=== PATIENT | female | born 1950 | race Caucasian/White ===

== ENCOUNTER 2019-03-29 07:37 | Day surgery (SDC) | payer BC, MEDICARE ==
[~2019-03-29 07:37] MED LIST: Lactated Ringers 1,000 ML IV SCH; Lidocaine 1%/Sod Bicarbonate in NS 8.4% 1 ML Syringe IDERM PRN; Sodium Chloride 0.9% 10 ML Syringe FLUSH PRN
[2019-03-29] MEDS ORDERED: Propofol 200 MG/20 ML SDV ONE ×2 (08:05→08:38)
--- NOTE | 2019-03-29 08:30 | PCM.PREANE ---
Preanesthetic Assessment - Anesthesia/Transfusion/Family Hx Anesthesia History: Prior Anesthesia Without Reaction Family History of Anesthesia Reaction: No Transfusion History: No Prior Transfusion(s) Intubation History: Unknown - Review of Systems General: No Symptoms Pulmonary: No Symptoms Cardiovascular: No Symptoms Gastrointestinal: No Symptoms Neurological: No Symptoms - Physical Assessment NPO Status Date: 03/28/19 NPO Status Time: 11:55 O2 Sat by Pulse Oximetry: 91 Respiratory Rate: 16 Vital Signs: Last Vital Signs Temp 36.2 C 03/29/19 07:45 Pulse 67 03/29/19 07:45 Resp 16 03/29/19 07:45 BP 123/68 03/29/19 07:45 Pulse Ox 91 L 03/29/19 07:45 Height: 1.65 m Weight: 83.461 kg ASA Class: 3 Mental Status: Alert & Oriented x3 Dentition: Reports: Normal Dentition ROM/Head Extension: Full Lungs: Normal Respiratory Effort, Rales Cardiovascular: Regular Rate, Regular Rhythm - Allergies Allergies/Adverse Reactions: Allergies Allergy/AdvReac Type Severity Reaction Status Date / Time No Known Allergies Allergy Verified 03/28/19 12:31 - Blood Blood Available: No Product(s) Available: None - Anesthesia Plan Pre-Op Medication Ordered: Beta Marta Beta Marta: Metoprolol - Acknowledgements Anesthesia Type Planned: MAC Pt an Appropriate Candidate for the Planned Anesthesia: Yes Alternatives and Risks of Anesthesia Discussed w Pt/Guardian: Yes Pt/Guardian Understands and Agrees with Anesthesia Plan: Yes PreAnesthesia Questionnaire HEENT History: Reports: Allergic Rhinitis, Hard of Hearing, Impaired Vision, Otitis Media, Sinusitis, Other (See Below) Other HEENT History: hearing loss, bacterial conjunctivitis, cerumen impaction Cardiovascular History: Reports: High Cholesterol, Hypertension Respiratory History: Reports: Bronchitis, Recurrent, Sleep Apnea, Other (See Below) Other Respiratory History: reactive airway disease Gastrointestinal History: Reports: Colon Polyp, Diverticulosis, GERD, Irritable Bowel Syndrome Genitourinary History: Reports: Chronic Renal Insuffiency INSIDE POLISHER History: Reports: None Musculoskeletal History: Reports: RA, Other (See Below) Other Musculoskeletal History: left foot pain, back pain, rib fracture, osteoporosis, restless leg syndrome, right hip pain Neurological History: Reports: Migraines, Vertigo Psychiatric History: Reports: Anxiety, Depression Endocrine/Metabolic History: Reports: None Hematologic History: Reports: Other (See Below) Other Hematologic History: hypercalcemia Immunologic History: Reports: None Oncologic (Cancer) History: Reports: None Dermatologic History: Reports: Other (See Below) Other Dermatologic History: actinic keratosis, skin lesion - Infectious Disease History Infectious Disease History: Reports: Influenza - Past Surgical History Head Surgeries/Procedures: Reports: None Cardiovascular Surgical History: Reports: None Respiratory Surgical History: Reports: None GI Surgical History: Reports: Appendectomy, Colonoscopy, Other (See Below) Other GI Surgeries/Procedures: ileostomy, laparoscopic partial colectomy Female Surgical History: Reports: Hysterectomy, Other (See Below) Other Female Surgeries/Procedures: rectovaginal fistula repair Endocrine Surgical History: Reports: None Neurological Surgical History: Reports: None Musculoskeletal Surgical History: Reports: Knee Replacement, Other (See Below) Other Musculoskeletal Surgeries/Procedures:: acl repair, bilateral bunionectomy , bilateral knee replacements, right shoulder surgery Oncologic Surgical History: Reports: None - SUBSTANCE USE Smoking Status *Q: Former Smoker Recreational Drug Use History: No - HOME MEDS Home Medications: Home Meds Albuterol Sulfate [Proair Respiclick] 1 - 2 puff INH Q4H PRN 10/30/16 [History] Aspirin 325 mg PO DAILY 10/30/16 [History] Denosumab [Prolia] 60 mg PO Q180D 10/30/16 [History] Felodipine [Felodipine ER] 5 mg PO ACBREAKFAST 10/30/16 [History] Metoprolol Tartrate 25 mg PO BID 10/30/16 [History] Naratriptan HCl 2.5 mg PO ASDIRECTED PRN 10/30/16 [History] Rosuvastatin [Crestor] 20 mg PO DAILY 10/30/16 [History] Sertraline HCl 150 mg PO BEDTIME 10/30/16 [History] Tofacitinib Citrate [Xeljanz] 5 mg PO BID 10/30/16 [History] Celecoxib 100 mg PO DAILY 03/28/19 [History] Diclofenac Sodium [Voltaren 1% Gel] 1 dose TOP BID PRN 03/28/19 [History] Famotidine [Pepcid AC] 10 mg PO DAILY 03/28/19 [History] Folic Acid 1 mg PO DAILY 03/28/19 [History] Gabapentin [Neurontin] 300 mg PO QAM 03/28/19 [History] Gabapentin [Neurontin] 600 mg PO QPM 03/28/19 [History] Pramipexole Di-HCl [Pramipexole Dihydrochloride] 0.125 mg PO BEDTIME 03/28/19 [ History] oxyCODONE HCl [Oxycontin] 15 mg PO BID 03/28/19 [History] oxyCODONE HCl/Acetaminophen [Oxycodone-Acetaminophen 5-325] 1 - 2 tab PO Q6H PRN 03/28/19 [History] predniSONE [Prednisone] 3 mg PO BID 03/28/19 [History] - CURRENT (IN HOUSE) MEDS Current Meds: Current Medications Lactated Ringer's (Ringers, Lactated) 1,000 mls @ 125 mls/hr IV ASDIRECTED BASIL Stop: 03/29/19 23:00 Last Admin: 03/29/19 08:00 Dose: 125 mls/hr Lidocaine/Sodium Bicarbonate (Buffered Lidocaine 1% In Ns 8.4%) 0.25 ml IDERM ONETIME PRN PRN Reason: Prior to IV Start Stop: 03/29/19 18:00 Sodium Chloride (Saline Flush) 10 ml FLUSH ASDIRECTED PRN PRN Reason: Keep Vein Open Stop: 03/29/19 18:00 Discontinued Medications Propofol (Diprivan 20 Ml) Confirm Administered Dose 200 mg .ROUTE .STK-MED ONE Stop: 03/29/19 08:06
--- NOTE | 2019-03-29 08:56 | PCM.POSTAN ---
POST ANESTHESIA ASSESSMENT - MENTAL STATUS Mental Status: Alert - RESPIRATORY Respiratory Status: Respiratory Rate WNL, Airway Patent - CARDIOVASCULAR CV Status: Pulse Rate WNL, Blood Pressure Stable - GASTROINTESTINAL GI Status: No Symptoms - POST OP HYDRATION Hydration Status: Adequate & Stable
--- NOTE | 2019-03-29 08:56 | PCM48HPAN ---
Post Anesthesia Note - EVALUATION WITHIN 48HRS OF ANESTHETIC Vital Signs in Normal Range: Yes Patient Participated in Evaluation: Yes Respiratory Function Stable: Yes Airway Patent: Yes Cardiovascular Function Stable: Yes Hydration Status Stable: Yes Pain Control Satisfactory: Yes Nausea and Vomiting Control Satisfactory: Yes Mental Status Recovered: Yes Resp Rate: 16
[2019-03-29 09:41] VITALS: BP 95/66
--- NOTE | 2019-03-29 14:31 | OR ---
DATE OF OPERATION: 03/29/2019 SURGEON: Brad Beaver MD PREOPERATIVE DIAGNOSIS: 1. Strong family history of colonic malignancy. 2. Diverticulosis. POSTOPERATIVE DIAGNOSIS: 1. Strong family history of colonic malignancy. 2. Diverticulosis. OPERATION PERFORMED: Screening colonoscopy. FINDINGS: She has a short segment of remaining sigmoid diverticulosis identified in anastomosis between the sigmoid colon and the rectum with evidence of previous resection. She had no polyps. She had an excellent bowel prep. PATHOLOGY: None. DISPOSITION: Stable at the end of the procedure. ANESTHESIA: Monitored anesthesia care. INDICATION: The patient is a 68-year-old female, 6 years out from her last colonoscopy. She has a strong family history of colon cancer. She has a history of colon resection for perforated diverticulitis, which resulted in an anastomotic leak and redo. The patient was offered a screening colonoscopy per the standard of care. She was fully informed of the major risks, benefits, and alternatives. The risks include, but are not limited to, perforation of the colon, bleeding, the risks of anesthesia, and the possibility of further surgery. She gave informed consent. DESCRIPTION OF PROCEDURE: The patient was brought to the gastro suite and placed in the left lateral decubitus position. She was given monitored anesthesia. Digital rectal exam was performed. This was unremarkable. I introduced the colonoscope with copious lubrication into the rectum. I advanced the scope keeping the lumen in view at all times with gentle forward pressure. I identified the cecum photographically. I slowly investigated the mucosa of the colon from the cecum back to the anus in an exam lasting 7 minutes. A thorough careful examination of the entirety of the mucosa demonstrated no polyps. She has a short segment of diverticulosis, but beyond this, her exam was unremarkable. At the end of the procedure, the scope was withdrawn. She had no complications and tolerated the procedure well with no blood loss. PLAN: She will need another followup exam in 5 years. ESTIMATED BLOOD LOSS: MMODAL /[id number]
== END 2019-03-29 09:30 | disposition home or self-care (01) ==
LOC: JD.SDS 07:37
PROVIDERS: ATTEND Surgery
DX: Z12.11 Encounter for screening for malignant neoplasm of colon (principal); K57.30 Diverticulosis of large intestine without perforation or abscess without bleeding; K21.9 Gastro-esophageal reflux disease without esophagitis; I12.9 Hypertensive chronic kidney disease with stage 1 through stage 4 chronic kidney disease, or unspecified chronic kidney disease; N18.9 Chronic kidney disease, unspecified; E78.00 Pure hypercholesterolemia, unspecified; F41.9 Anxiety disorder, unspecified; F32.9 Major depressive disorder, single episode, unspecified; G47.33 Obstructive sleep apnea (adult) (pediatric); G43.909 Migraine, unspecified, not intractable, without status migrainosus; M19.90 Unspecified osteoarthritis, unspecified site; Z90.49 Acquired absence of other specified parts of digestive tract; Z86.010 Personal history of colon polyps; Z87.19 Personal history of other diseases of the digestive system; Z87.891 Personal history of nicotine dependence; Z80.0 Family history of malignant neoplasm of digestive organs; Z79.82 Long term (current) use of aspirin; Z79.1 Long term (current) use of non-steroidal anti-inflammatories (NSAID); Z79.52 Long term (current) use of systemic steroids; Z79.899 Other long term (current) drug therapy
CPT/HCPCS: 00812; J2704; J7120

== ENCOUNTER 2021-12-06 09:28 | Inpatient (IN) | payer BC, MEDICARE ==
[2021-12-06] MEDS ORDERED: Sodium Chloride 0.9% 10 ML Syringe FLUSH PRN (09:39)
[2021-12-06] MEDS ORDERED: methylPREDNISolone Sodium Succinate 125 MG/2 ML SDV IVPUSH ONE (10:01)
[2021-12-06 11:06] LABS: CORONAVIRUS COVID-19 NAA POSITIVE (NEGATIVE)
[2021-12-06] MEDS ORDERED: Lactated Ringers 500 ML IV ONE (17:56)
[2021-12-06] MEDS ORDERED: Acetaminophen 325 MG Tab PO PRN (20:51)
[2021-12-06] MEDS ORDERED: Mirtazapine 30 MG Tab PO ONE (21:15)
[2021-12-06] MEDS: Sertraline 50 MG Tab PO SCH (22:00)
[2021-12-06] MEDS: cefTRIAXone 2 GM in Sodium Chloride 0.9% 100 ML IV SCH (22:11)
[2021-12-06] MEDS: Azithromycin 500 MG in Sodium Chloride 0.9% 250 ML IV SCH (22:55)
[2021-12-07] MEDS ORDERED: Enoxaparin 60 MG/0.6 ML Syringe SUBCUT ONE (08:00)
[2021-12-07] MEDS ORDERED: Enoxaparin 100 MG/1 ML Syringe SUBCUT SCH (08:00)
[2021-12-07] MEDS: Aspirin 325 MG Tab.EC PO SCH (08:34)
[2021-12-07] MEDS: Famotidine 10 MG Tab PO SCH (08:34)
[2021-12-07] MEDS: Metoprolol Tartrate 50 MG Tab PO SCH ×2 (08:35→21:38)
[2021-12-07] MEDS: Calcium Carbonate/Vitamin D3 600 MG-200 Units Tab PO SCH (08:35)
[2021-12-07] MEDS: Rosuvastatin 10 MG Tab PO SCH (08:35)
[2021-12-07] MEDS: Dexamethasone 4 MG Tab PO SCH (08:35)
[2021-12-07] MEDS: Allopurinol 100 MG Tab PO SCH (08:35)
[2021-12-07] MEDS ORDERED: Enoxaparin 60 MG/0.6 ML Syringe SUBCUT SCH ×2 (09:15→21:00)
[2021-12-07] MEDS ORDERED: Enoxaparin 30 MG/0.3 ML Syringe SUBCUT ONE (18:00)
[2021-12-07] MEDS: Sertraline 50 MG Tab PO SCH (21:40)
[2021-12-07] MEDS: Mirtazapine 30 MG Tab PO SCH (21:40)
[2021-12-07] MEDS: cefTRIAXone 2 GM in Sodium Chloride 0.9% 100 ML IV SCH (21:45)
[2021-12-07] MEDS: Azithromycin 500 MG in Sodium Chloride 0.9% 250 ML IV SCH (22:01)
[2021-12-08] MEDS: Famotidine 10 MG Tab PO SCH (08:24)
[2021-12-08] MEDS: Dexamethasone 4 MG Tab PO SCH (08:25)
[2021-12-08] MEDS: Allopurinol 100 MG Tab PO SCH (08:25)
[2021-12-08] MEDS: Aspirin 325 MG Tab.EC PO SCH (08:25)
[2021-12-08] MEDS: Rosuvastatin 10 MG Tab PO SCH (08:25)
[2021-12-08] MEDS: Calcium Carbonate/Vitamin D3 600 MG-200 Units Tab PO SCH (08:25)
[2021-12-08] MEDS: Metoprolol Tartrate 50 MG Tab PO SCH (08:26)
[2021-12-08] MEDS: Enoxaparin 100 MG/1 ML Syringe SUBCUT SCH (08:26)
[2021-12-08] MEDS: Famotidine 20 MG Tab PO SCH ×2 (08:31→08:47)
[2021-12-08] MEDS: Metoprolol Tartrate 25 MG Tab PO SCH ×3 (08:31→21:17)
[2021-12-08] MEDS ORDERED: Furosemide 40 MG/4 ML VIAL IVPUSH ONE (09:20)
[2021-12-08] MEDS: Clopidogrel 75 MG Tab PO SCH (15:52)
[2021-12-08] MEDS: Mirtazapine 30 MG Tab PO SCH (21:19)
[2021-12-08] MEDS: Sertraline 50 MG Tab PO SCH (21:19)
[2021-12-08] MEDS: Azithromycin 500 MG in Sodium Chloride 0.9% 250 ML IV SCH (21:24)
[2021-12-09] MEDS: Clopidogrel 75 MG Tab PO SCH (08:37)
[2021-12-09] MEDS: Metoprolol Tartrate 25 MG Tab PO SCH (08:37)
[2021-12-09] MEDS: Calcium Carbonate/Vitamin D3 600 MG-200 Units Tab PO SCH (08:38)
[2021-12-09] MEDS: Allopurinol 100 MG Tab PO SCH (08:38)
[2021-12-09] MEDS: Aspirin 325 MG Tab.EC PO SCH (08:40)
[2021-12-09] MEDS: Rosuvastatin 10 MG Tab PO SCH (08:40)
[2021-12-09] MEDS: Famotidine 20 MG Tab PO SCH (08:40)
[2021-12-09] MEDS: Dexamethasone 4 MG Tab PO SCH (08:42)
[2021-12-09] MEDS: Enoxaparin 100 MG/1 ML Syringe SUBCUT SCH (08:42)
[2021-12-09 13:09] VITALS: BP 105/91; PULSE 68
== END 2021-12-09 14:02 | disposition home or self-care (01) | DRG 137 ==
LOC: JD.ED 09:28 → JD.ICU 14:53 → JD.MS 12-09 09:28
PROVIDERS: ADMIT Pediatrics; ATTEND Pediatrics
PROC: 8E0ZXY6 Isolation (ICD-10-PCS; principal; 2021-12-06)
PROC: 3E0333Z Introduction of Anti-inflammatory into Peripheral Vein, Percutaneous Approach (ICD-10-PCS; 2021-12-06)
DX: U07.1 COVID-19 (principal); J12.82 Pneumonia due to coronavirus disease 2019; D84.9 Immunodeficiency, unspecified; M06.9 Rheumatoid arthritis, unspecified; I21.A1 Myocardial infarction type 2; I50.32 Chronic diastolic (congestive) heart failure; H91.93 Unspecified hearing loss, bilateral; E78.5 Hyperlipidemia, unspecified; G47.33 Obstructive sleep apnea (adult) (pediatric); K21.9 Gastro-esophageal reflux disease without esophagitis; I13.0 Hypertensive heart and chronic kidney disease with heart failure and stage 1 through stage 4 chronic kidney disease, or unspecified chronic kidney disease; N18.9 Chronic kidney disease, unspecified; E66.9 Obesity, unspecified; Z96.653 Presence of artificial knee joint, bilateral; F32.A Depression, unspecified; F41.9 Anxiety disorder, unspecified; Z87.81 Personal history of (healed) traumatic fracture; Z68.30 Body mass index [BMI] 30.0-30.9, adult; Z90.49 Acquired absence of other specified parts of digestive tract; Z93.2 Ileostomy status; Z90.710 Acquired absence of both cervix and uterus; Z79.82 Long term (current) use of aspirin; Z79.899 Other long term (current) drug therapy
CPT/HCPCS: 0241U; 36415; 36600; 70450; 70450-26; 71045; 71045-26; 80048; 80053; 80076; 81001; 82728; 82803; 82947; 83605; 83615; 83880; 84484; 85025; 85379; 85652; 86140; 87040; 93005; 93010; 93306; 94660; 94667; 94668; 94761; 96374; 97161-GP; 99285; 99285-25; A9270-GY; J0456; J0696; J1650; J1940; J2930; J7050; J7120; J8540

== ENCOUNTER 2022-10-12 17:41 | Inpatient (IN) | payer BC, MEDICARE ==
[2022-10-12] MEDS ORDERED: Ondansetron 4 MG in Sodium Chloride 0.9% 50 ML IV ONE (18:35)
[2022-10-12 19:03] LABS: ESTIMATED GFR 26 mL/min (>60)
[2022-10-12 19:39] LABS: CORONAVIRUS COVID-19 NAA NEGATIVE (NEGATIVE)
[2022-10-12] MEDS ORDERED: Sodium Chloride 0.9% 10 ML Syringe FLUSH ONE (19:50)
[2022-10-12] MEDS ORDERED: Iopamidol 755 Mg/ML 100 ML Bottle IVPUSH ONE (19:50)
[2022-10-12] MEDS ORDERED: Sodium Chloride 0.9% 100 ML IV SCH (20:00)
[2022-10-12] MEDS ORDERED: Sodium Chloride 0.9% 1,000 ML IV SCH ×2 (21:15→22:45)
[2022-10-12] MEDS ORDERED: Acetaminophen/oxyCODONE 325-5 MG Tab PO ONE (21:28)
[2022-10-12] MEDS ORDERED: oxyCODONE ER 10 MG TAB.ER PO STA (21:29)
[2022-10-12] MEDS ORDERED: Piperacillin/Tazobactam 4.5 GM in Sodium Chloride 0.9% 100 ML IV ONE (21:36)
[2022-10-13] MEDS: methylPREDNISolone Sodium Succinate 125 MG/2 ML SDV IVPUSH SCH (08:35)
[2022-10-13] MEDS: Albuterol/Ipratropium 3.0-0.5 MG/3 ML Neb Soln NEB SCH ×4 (09:04→21:02)
[2022-10-13] MEDS: Piperacillin/Tazobactam 4.5 GM in Sodium Chloride 0.9% 100 ML IV SCH ×2 (11:40→22:47)
[2022-10-13] MEDS ORDERED: Diclofenac Sodium 1% Gel 100 GM Tube TOP PRN (11:42)
[2022-10-13] MEDS: Gabapentin 300 MG Cap PO SCH (12:41)
[2022-10-13] MEDS ORDERED: Furosemide 20 MG/2 ML VIAL IVPUSH ONE (14:42)
[2022-10-13] MEDS ORDERED: LORazepam 2 MG/ML SDV IVPUSH ONE (18:33)
[2022-10-14] MEDS: Metoprolol Tartrate 25 MG Tab PO SCH ×3 (02:04→21:09)
[2022-10-14] MEDS: Gabapentin 600 MG Tab PO SCH ×2 (02:06→21:15)
[2022-10-14] MEDS: Sertraline 50 MG Tab PO SCH ×2 (02:07→21:16)
[2022-10-14] MEDS: OXYCODONE HCL PO SCH ×3 (02:07→21:24)
[2022-10-14] MEDS: Mirtazapine 30 MG Tab PO SCH (02:07)
[2022-10-14] MEDS: Albuterol/Ipratropium 3.0-0.5 MG/3 ML Neb Soln NEB SCH ×6 (02:33→21:05)
[2022-10-14] MEDS ORDERED: Sodium Chloride 0.9% 1,000 ML IV SCH (06:30)
[2022-10-14] MEDS ORDERED: Famotidine 20 MG Tab PO SCH (09:00)
[2022-10-14] MEDS: Gabapentin 300 MG Cap PO SCH ×2 (09:12→11:11)
[2022-10-14] MEDS: methylPREDNISolone Sodium Succinate 125 MG/2 ML SDV IVPUSH SCH (09:12)
[2022-10-14] MEDS: Famotidine 10 MG Tab PO SCH (09:12)
[2022-10-14] MEDS: Allopurinol 100 MG Tab PO SCH (09:13)
[2022-10-14] MEDS: Heparin Sodium 5,000 Units/ML Vial SUBCUT SCH ×2 (11:11→21:09)
[2022-10-14] MEDS: Piperacillin/Tazobactam 4.5 GM in Sodium Chloride 0.9% 100 ML IV SCH ×2 (11:11→23:58)
[2022-10-14] MEDS: guaiFENesin 600 MG Tab.ER PO SCH ×2 (11:11→21:15)
[2022-10-15] MEDS: Albuterol/Ipratropium 3.0-0.5 MG/3 ML Neb Soln NEB SCH ×6 (02:04→21:37)
[2022-10-15] MEDS: Heparin Sodium 5,000 Units/ML Vial SUBCUT SCH ×3 (04:25→21:48)
[2022-10-15] MEDS: Gabapentin 300 MG Cap PO SCH ×2 (06:21→11:52)
[2022-10-15] MEDS: Allopurinol 100 MG Tab PO SCH (09:08)
[2022-10-15] MEDS: guaiFENesin 600 MG Tab.ER PO SCH ×2 (09:08→21:45)
[2022-10-15] MEDS: Famotidine 10 MG Tab PO SCH (09:08)
[2022-10-15] MEDS: Metoprolol Tartrate 25 MG Tab PO SCH ×2 (09:09→21:45)
[2022-10-15] MEDS: methylPREDNISolone Sodium Succinate 125 MG/2 ML SDV IVPUSH SCH (09:09)
[2022-10-15] MEDS: Piperacillin/Tazobactam 4.5 GM in Sodium Chloride 0.9% 100 ML IV SCH ×2 (11:52→23:41)
[2022-10-15] MEDS ORDERED: Heparin Sodium 5,000 Units/ML Vial ONE (21:38)
[2022-10-15] MEDS: Sertraline 50 MG Tab PO SCH (21:44)
[2022-10-15] MEDS: Gabapentin 600 MG Tab PO SCH (21:44)
[2022-10-16] MEDS: Albuterol/Ipratropium 3.0-0.5 MG/3 ML Neb Soln NEB SCH ×6 (01:34→22:53)
[2022-10-16] MEDS: OXYCODONE HCL PO SCH ×4 (04:33→20:28)
[2022-10-16] MEDS: Heparin Sodium 5,000 Units/ML Vial SUBCUT SCH ×3 (04:34→18:54)
[2022-10-16] MEDS: Gabapentin 300 MG Cap PO SCH ×2 (05:51→11:52)
[2022-10-16] MEDS: guaiFENesin 600 MG Tab.ER PO SCH ×2 (08:57→20:22)
[2022-10-16] MEDS: Allopurinol 100 MG Tab PO SCH (08:58)
[2022-10-16] MEDS: Famotidine 10 MG Tab PO SCH (08:58)
[2022-10-16] MEDS: Metoprolol Tartrate 25 MG Tab PO SCH ×2 (08:58→20:23)
[2022-10-16] MEDS: predniSONE 20 MG Tab PO SCH (08:58)
[2022-10-16] MEDS: Piperacillin/Tazobactam 4.5 GM in Sodium Chloride 0.9% 100 ML IV SCH ×2 (11:51→18:54)
[2022-10-16] MEDS: oxyCODONE 5 MG Tab PO PRN (18:53)
[2022-10-16] MEDS: Gabapentin 600 MG Tab PO SCH (20:21)
[2022-10-16] MEDS: Sertraline 50 MG Tab PO SCH (20:22)
[2022-10-16] MEDS: Mirtazapine 30 MG Tab PO SCH (20:23)
[2022-10-17] MEDS: Albuterol/Ipratropium 3.0-0.5 MG/3 ML Neb Soln NEB SCH ×6 (02:56→22:06)
[2022-10-17] MEDS: Piperacillin/Tazobactam 4.5 GM in Sodium Chloride 0.9% 100 ML IV SCH ×3 (03:29→19:10)
[2022-10-17] MEDS: Heparin Sodium 5,000 Units/ML Vial SUBCUT SCH ×3 (03:30→19:10)
[2022-10-17] MEDS: Gabapentin 300 MG Cap PO SCH ×2 (05:43→11:43)
[2022-10-17] MEDS: predniSONE 20 MG Tab PO SCH (06:00)
[2022-10-17] MEDS: Metoprolol Tartrate 25 MG Tab PO SCH ×2 (08:43→20:03)
[2022-10-17] MEDS: oxyCODONE 5 MG Tab PO PRN ×2 (08:44→19:10)
[2022-10-17] MEDS: Allopurinol 100 MG Tab PO SCH (08:45)
[2022-10-17] MEDS: guaiFENesin 600 MG Tab.ER PO SCH ×2 (08:45→20:02)
[2022-10-17] MEDS: Famotidine 10 MG Tab PO SCH (08:45)
[2022-10-17] MEDS: OXYCODONE HCL PO SCH ×2 (10:08→20:05)
[2022-10-17] MEDS: Gabapentin 600 MG Tab PO SCH (20:00)
[2022-10-17] MEDS: Sertraline 50 MG Tab PO SCH (20:01)
[2022-10-17] MEDS: Mirtazapine 30 MG Tab PO SCH (20:03)
[2022-10-18] MEDS: Heparin Sodium 5,000 Units/ML Vial SUBCUT SCH ×3 (02:29→20:21)
[2022-10-18] MEDS: Piperacillin/Tazobactam 4.5 GM in Sodium Chloride 0.9% 100 ML IV SCH ×3 (02:29→20:21)
[2022-10-18] MEDS: Albuterol/Ipratropium 3.0-0.5 MG/3 ML Neb Soln NEB SCH ×6 (02:31→22:09)
[2022-10-18] MEDS: predniSONE 20 MG Tab PO SCH (06:29)
[2022-10-18] MEDS: Gabapentin 300 MG Cap PO SCH ×2 (06:29→11:38)
[2022-10-18] MEDS: Albuterol 0.083% 2.5 MG/3 ML Neb Soln NEB PRN (07:40)
[2022-10-18] MEDS: Metoprolol Tartrate 25 MG Tab PO SCH ×3 (07:41→20:22)
[2022-10-18] MEDS: Famotidine 10 MG Tab PO SCH ×2 (07:42→08:02)
[2022-10-18] MEDS: guaiFENesin 600 MG Tab.ER PO SCH ×3 (07:42→20:24)
[2022-10-18] MEDS: Allopurinol 100 MG Tab PO SCH ×2 (07:42→08:02)
[2022-10-18] MEDS: OXYCODONE HCL PO SCH ×2 (08:02→20:29)
[2022-10-18] MEDS ORDERED: Levofloxacin/Dextrose 5%-Water 750 MG in Premix Bag 1 BAG IV SCH (11:00)
[2022-10-18 11:43] LABS: CORONAVIRUS COVID-19 NAA NEGATIVE (NEGATIVE)
[2022-10-18] MEDS ORDERED: VANCOmycin 1.25 GM/250 ML 1.25 GM in Premix Bag 1 BAG IV SCH (12:30)
[2022-10-18] MEDS: Sertraline 50 MG Tab PO SCH (20:22)
[2022-10-18] MEDS: Gabapentin 600 MG Tab PO SCH (20:24)
[2022-10-18] MEDS: Mirtazapine 30 MG Tab PO SCH (20:24)
[2022-10-19] MEDS: Albuterol/Ipratropium 3.0-0.5 MG/3 ML Neb Soln NEB SCH ×6 (01:57→21:03)
[2022-10-19] MEDS: Heparin Sodium 5,000 Units/ML Vial SUBCUT SCH ×3 (03:22→20:04)
[2022-10-19] MEDS: Piperacillin/Tazobactam 4.5 GM in Sodium Chloride 0.9% 100 ML IV SCH (03:22)
[2022-10-19] MEDS: Gabapentin 300 MG Cap PO SCH ×2 (06:07→14:50)
[2022-10-19] MEDS: predniSONE 20 MG Tab PO SCH (06:07)
[2022-10-19] MEDS: Famotidine 10 MG Tab PO SCH (09:50)
[2022-10-19] MEDS: Metoprolol Tartrate 25 MG Tab PO SCH ×2 (09:50→20:01)
[2022-10-19] MEDS: guaiFENesin 600 MG Tab.ER PO SCH ×2 (09:51→20:00)
[2022-10-19] MEDS: Allopurinol 100 MG Tab PO SCH (09:51)
[2022-10-19] MEDS: OXYCODONE HCL PO SCH ×2 (10:02→20:00)
[2022-10-19] MEDS: Sertraline 50 MG Tab PO SCH (20:00)
[2022-10-19] MEDS: Mirtazapine 30 MG Tab PO SCH (20:01)
[2022-10-19] MEDS: Gabapentin 600 MG Tab PO SCH (20:04)
[2022-10-20] MEDS: Albuterol/Ipratropium 3.0-0.5 MG/3 ML Neb Soln NEB SCH ×6 (01:38→21:00)
[2022-10-20] MEDS: Heparin Sodium 5,000 Units/ML Vial SUBCUT SCH ×3 (04:14→19:02)
[2022-10-20] MEDS: Gabapentin 300 MG Cap PO SCH ×2 (06:25→11:52)
[2022-10-20] MEDS: predniSONE 20 MG Tab PO SCH (06:25)
[2022-10-20] MEDS: guaiFENesin 600 MG Tab.ER PO SCH (08:25)
[2022-10-20] MEDS: Famotidine 10 MG Tab PO SCH (08:26)
[2022-10-20] MEDS: Metoprolol Tartrate 25 MG Tab PO SCH ×2 (08:27→20:06)
[2022-10-20] MEDS: OXYCODONE HCL PO SCH ×2 (08:32→23:31)
[2022-10-20] MEDS: Allopurinol 100 MG Tab PO SCH (08:32)
[2022-10-20] MEDS: Albuterol 0.083% 2.5 MG/3 ML Neb Soln NEB PRN (08:38)
[2022-10-20] MEDS: guaiFENesin/Dextromethorphan 100-10 MG/5 ML Soln 5 ML Cup PO SCH ×2 (14:29→20:06)
[2022-10-20] MEDS: Mirtazapine 30 MG Tab PO SCH (20:06)
[2022-10-20] MEDS: Sertraline 50 MG Tab PO SCH (20:06)
[2022-10-20] MEDS: Gabapentin 600 MG Tab PO SCH (20:06)
[2022-10-21] MEDS: Albuterol/Ipratropium 3.0-0.5 MG/3 ML Neb Soln NEB SCH ×6 (01:25→22:00)
[2022-10-21] MEDS: Heparin Sodium 5,000 Units/ML Vial SUBCUT SCH ×3 (04:10→20:39)
[2022-10-21] MEDS: guaiFENesin/Dextromethorphan 100-10 MG/5 ML Soln 5 ML Cup PO SCH ×3 (06:21→20:41)
[2022-10-21] MEDS: predniSONE 20 MG Tab PO SCH (06:21)
[2022-10-21] MEDS: Gabapentin 300 MG Cap PO SCH ×2 (06:21→12:32)
[2022-10-21] MEDS: Albuterol 0.083% 2.5 MG/3 ML Neb Soln NEB PRN (08:31)
[2022-10-21] MEDS: Allopurinol 100 MG Tab PO SCH (08:39)
[2022-10-21] MEDS: Famotidine 10 MG Tab PO SCH (08:39)
[2022-10-21] MEDS: Metoprolol Tartrate 25 MG Tab PO SCH ×2 (08:40→20:42)
[2022-10-21] MEDS ORDERED: Magnesium Sulfate/Water 4 GM in Premix Bag 1 BAG IV ONE (09:08)
[2022-10-21] MEDS: OXYCODONE HCL PO SCH ×2 (12:46→20:40)
[2022-10-21] MEDS: Gabapentin 600 MG Tab PO SCH (20:41)
[2022-10-21] MEDS: Sertraline 50 MG Tab PO SCH (20:41)
[2022-10-21] MEDS: Mirtazapine 30 MG Tab PO SCH (20:42)
[2022-10-22] MEDS: Albuterol/Ipratropium 3.0-0.5 MG/3 ML Neb Soln NEB SCH ×3 (02:01→10:26)
[2022-10-22] MEDS: Heparin Sodium 5,000 Units/ML Vial SUBCUT SCH ×2 (04:02→11:58)
[2022-10-22] MEDS: guaiFENesin/Dextromethorphan 100-10 MG/5 ML Soln 5 ML Cup PO SCH (06:44)
[2022-10-22] MEDS: Gabapentin 300 MG Cap PO SCH ×2 (06:45→11:58)
[2022-10-22] MEDS ORDERED: predniSONE 20 MG Tab PO SCH (07:00)
[2022-10-22] MEDS: Famotidine 10 MG Tab PO SCH (08:00)
[2022-10-22] MEDS: Allopurinol 100 MG Tab PO SCH (08:00)
[2022-10-22] MEDS: Metoprolol Tartrate 25 MG Tab PO SCH (08:00)
[2022-10-22] MEDS: OXYCODONE HCL PO SCH (08:02)
[2022-10-22] MEDS ORDERED: Magnesium Oxide 400 MG Tab PO SCH (09:00)
[2022-10-22 12:44] VITALS: BP 103/62; PULSE 94
== END 2022-10-22 13:22 | disposition home health service (06) | DRG 720 ==
LOC: JD.ED 17:41 → JD.MS 21:42
PROVIDERS: ADMIT Internal Medicine; ATTEND Internal Medicine
DX: A41.9 Sepsis, unspecified organism (principal); J15.9 Unspecified bacterial pneumonia; J96.01 Acute respiratory failure with hypoxia; J96.02 Acute respiratory failure with hypercapnia; Z20.822 Contact with and (suspected) exposure to COVID-19; R65.20 Severe sepsis without septic shock; J43.9 Emphysema, unspecified; B97.4 Respiratory syncytial virus as the cause of diseases classified elsewhere; F41.9 Anxiety disorder, unspecified; F32.A Depression, unspecified; I13.0 Hypertensive heart and chronic kidney disease with heart failure and stage 1 through stage 4 chronic kidney disease, or unspecified chronic kidney disease; N17.9 Acute kidney failure, unspecified; R74.8 Abnormal levels of other serum enzymes; I50.33 Acute on chronic diastolic (congestive) heart failure; Z96.653 Presence of artificial knee joint, bilateral; N18.32 Chronic kidney disease, stage 3b; E83.42 Hypomagnesemia; M05.79 Rheumatoid arthritis with rheumatoid factor of multiple sites without organ or systems involvement; I08.1 Rheumatic disorders of both mitral and tricuspid valves; E78.00 Pure hypercholesterolemia, unspecified; H54.7 Unspecified visual loss; D84.9 Immunodeficiency, unspecified; M06.9 Rheumatoid arthritis, unspecified; M81.0 Age-related osteoporosis without current pathological fracture; K21.9 Gastro-esophageal reflux disease without esophagitis; K57.90 Diverticulosis of intestine, part unspecified, without perforation or abscess without bleeding; G25.81 Restless legs syndrome; Z86.16 Personal history of COVID-19; Z90.710 Acquired absence of both cervix and uterus; Z79.82 Long term (current) use of aspirin; Z79.52 Long term (current) use of systemic steroids; Z79.899 Other long term (current) drug therapy
CPT/HCPCS: 0241U; 36410; 36415; 36600; 51701; 71045; 71045-26; 71046; 71046-26; 71275; 71275-26; 76700; 76700-26; 80048; 80053; 81001; 82803; 83605; 83735; 83880; 85025; 85027; 85379; 85610; 86140; 86317; 86803; 87040; 87340; 93307; 94640; 94660; 94667; 94668; 94761; 94762; 96365; 97110-GO; 97110-GP; 97116-GP; 97162-GP; 97166-GO; 97530-GP; 99100; 99233; 99239; 99285-25; A9270-GY; J1644; J1940; J1956; J2060; J2405; J2543; J2930; J3370; J3475; J3490; J7030; J7512; J7620-GY; Q9967

== ENCOUNTER 2022-11-18 09:20 | Inpatient (IN) | payer BC, MEDICARE ==
[2022-11-18 11:10] LABS: CORONAVIRUS COVID-19 NAA NEGATIVE (NEGATIVE)
[2022-11-18] MEDS ORDERED: Sodium Chloride 0.9% 10 ML Syringe FLUSH PRN (12:33)
[2022-11-18] MEDS ORDERED: Iopamidol 755 Mg/ML 100 ML Bottle IVPUSH ONE (12:33)
[2022-11-18] MEDS ORDERED: Sodium Chloride 0.9% 100 ML IV SCH (12:45)
[2022-11-18] MEDS ORDERED: Levofloxacin/Dextrose 5%-Water 750 MG in Premix Bag 1 BAG IV ONE (13:10)
[2022-11-18] MEDS ORDERED: Albuterol/Ipratropium 3.0-0.5 MG/3 ML Neb Soln NEB PRN (16:21)
[2022-11-18] MEDS ORDERED: Pantoprazole 40 MG Vial ONE (16:21)
[2022-11-18] MEDS: Isosorbide Mononitrate 30 MG Tab.ER PO SCH (17:59)
[2022-11-18] MEDS ORDERED: Enoxaparin 30 MG/0.3 ML Syringe SUBCUT SCH (18:00)
[2022-11-18] MEDS: Aspirin 325 MG Tab.EC PO SCH (18:01)
[2022-11-18] MEDS ORDERED: Diclofenac Sodium 1% Gel 100 GM Tube TOP PRN (18:08)
[2022-11-18] MEDS ORDERED: Albuterol/Ipratropium 3.0-0.5 MG/3 ML Neb Soln NEB SCH (18:15)
[2022-11-18] MEDS ORDERED: Albuterol/Ipratropium 3.0-0.5 MG/3 ML Neb Soln ONE (18:24)
[2022-11-18] MEDS ORDERED: Enoxaparin 40 MG/0.4 ML Syringe SUBCUT SCH (18:30)
[2022-11-18] MEDS ORDERED: Pantoprazole 40 MG Vial IVPUSH ONE (18:45)
[2022-11-18] MEDS ORDERED: Acetaminophen/oxyCODONE 325-5 MG Tab PO PRN (19:28)
[2022-11-18] MEDS: predniSONE 1 MG Tab PO SCH (20:07)
[2022-11-18] MEDS: Metoprolol Tartrate 25 MG Tab PO SCH (20:08)
[2022-11-18] MEDS: Mirtazapine 30 MG Tab PO SCH (20:08)
[2022-11-18] MEDS: Pramipexole 0.25 MG Tab PO SCH (20:09)
[2022-11-18] MEDS: Gabapentin 600 MG Tab PO SCH (20:09)
[2022-11-18] MEDS: Sertraline 50 MG Tab PO SCH (20:10)
[2022-11-18] MEDS: guaiFENesin/Dextromethorphan 100-10 MG/5 ML Soln 5 ML Cup PO SCH (20:11)
[2022-11-18] MEDS: Albuterol/Ipratropium 3.0-0.5 MG/3 ML Neb Soln NEB SCH (21:09)
[2022-11-19] MEDS: Albuterol/Ipratropium 3.0-0.5 MG/3 ML Neb Soln NEB SCH ×4 (05:51→20:22)
[2022-11-19] MEDS: guaiFENesin/Dextromethorphan 100-10 MG/5 ML Soln 5 ML Cup PO SCH ×3 (07:29→20:57)
[2022-11-19] MEDS ORDERED: OXYCODONE 15 MG PO PRN (08:11)
[2022-11-19] MEDS: Aspirin 325 MG Tab.EC PO SCH (08:37)
[2022-11-19] MEDS: Rosuvastatin 10 MG Tab PO SCH (08:37)
[2022-11-19] MEDS: Famotidine 10 MG Tab PO SCH (08:37)
[2022-11-19] MEDS: Isosorbide Mononitrate 30 MG Tab.ER PO SCH (08:38)
[2022-11-19] MEDS: Folic Acid 1 MG Tab PO SCH (08:38)
[2022-11-19] MEDS: Metoprolol Tartrate 25 MG Tab PO SCH ×2 (08:38→20:56)
[2022-11-19] MEDS: Gabapentin 300 MG Cap PO SCH ×2 (08:38→11:49)
[2022-11-19] MEDS: Magnesium Oxide 400 MG Tab PO SCH (08:38)
[2022-11-19] MEDS: Allopurinol 100 MG Tab PO SCH (08:38)
[2022-11-19] MEDS: predniSONE 1 MG Tab PO SCH ×2 (08:39→17:33)
[2022-11-19] MEDS: Enoxaparin 40 MG/0.4 ML Syringe SUBCUT SCH (08:43)
[2022-11-19] MEDS: FLUTICASONE INH SCH (09:02)
[2022-11-19] MEDS: UMECLIDIN INH SCH (09:02)
[2022-11-19] MEDS: VILANTER INH SCH (09:02)
[2022-11-19] MEDS: Gabapentin 600 MG Tab PO SCH (20:57)
[2022-11-19] MEDS: Sertraline 50 MG Tab PO SCH (20:57)
[2022-11-19] MEDS: Pramipexole 0.25 MG Tab PO SCH (20:57)
[2022-11-19] MEDS: Mirtazapine 30 MG Tab PO SCH (20:57)
[2022-11-20] MEDS: Albuterol/Ipratropium 3.0-0.5 MG/3 ML Neb Soln NEB SCH ×3 (05:01→15:59)
[2022-11-20] MEDS: guaiFENesin/Dextromethorphan 100-10 MG/5 ML Soln 5 ML Cup PO SCH ×2 (08:35→13:11)
[2022-11-20] MEDS: Metoprolol Tartrate 25 MG Tab PO SCH (08:36)
[2022-11-20] MEDS: Rosuvastatin 10 MG Tab PO SCH (08:36)
[2022-11-20] MEDS: Folic Acid 1 MG Tab PO SCH (08:37)
[2022-11-20] MEDS: Magnesium Oxide 400 MG Tab PO SCH (08:37)
[2022-11-20] MEDS: Allopurinol 100 MG Tab PO SCH (08:37)
[2022-11-20] MEDS: Isosorbide Mononitrate 30 MG Tab.ER PO SCH (08:37)
[2022-11-20] MEDS: Gabapentin 300 MG Cap PO SCH ×2 (08:37→12:10)
[2022-11-20] MEDS: predniSONE 1 MG Tab PO SCH (08:38)
[2022-11-20] MEDS: Aspirin 325 MG Tab.EC PO SCH (08:39)
[2022-11-20] MEDS: Famotidine 10 MG Tab PO SCH (08:39)
[2022-11-20] MEDS: Enoxaparin 40 MG/0.4 ML Syringe SUBCUT SCH (08:40)
[2022-11-20] MEDS: UMECLIDIN INH SCH (08:40)
[2022-11-20] MEDS: FLUTICASONE INH SCH (08:40)
[2022-11-20] MEDS: VILANTER INH SCH (08:40)
[2022-11-20] MEDS ORDERED: Levofloxacin/Dextrose 5%-Water 750 MG in Premix Bag 1 BAG IV SCH (14:00)
[2022-11-20 18:23] VITALS: BP 114/75; PULSE 78
== END 2022-11-20 16:40 | disposition home health service (06) | DRG 139 ==
LOC: JD.ED 09:20 → JD.MS 15:35 → JD.ICU 15:43 → JD.MS 11-20 09:47 → JD.ICU 11-20 09:54
PROVIDERS: ADMIT Pediatrics; ATTEND Pediatrics
DX: J18.9 Pneumonia, unspecified organism (principal); J96.21 Acute and chronic respiratory failure with hypoxia; J96.22 Acute and chronic respiratory failure with hypercapnia; J44.0 Chronic obstructive pulmonary disease with (acute) lower respiratory infection; I13.0 Hypertensive heart and chronic kidney disease with heart failure and stage 1 through stage 4 chronic kidney disease, or unspecified chronic kidney disease; Z20.822 Contact with and (suspected) exposure to COVID-19; H54.7 Unspecified visual loss; K21.9 Gastro-esophageal reflux disease without esophagitis; I50.9 Heart failure, unspecified; M81.0 Age-related osteoporosis without current pathological fracture; F41.9 Anxiety disorder, unspecified; F32.A Depression, unspecified; E66.9 Obesity, unspecified; G47.30 Sleep apnea, unspecified; Z96.653 Presence of artificial knee joint, bilateral; R41.82 Altered mental status, unspecified; N18.32 Chronic kidney disease, stage 3b; H91.90 Unspecified hearing loss, unspecified ear; E78.00 Pure hypercholesterolemia, unspecified; Z90.710 Acquired absence of both cervix and uterus; Z90.49 Acquired absence of other specified parts of digestive tract
CPT/HCPCS: 0241U; 36415; 36600; 71045; 71045-26; 71275; 71275-26; 80053; 81001; 82553; 82803; 83605; 83735; 83880; 84484; 85025; 85379; 85610; 85652; 85730; 86140; 86738; 87040; 87641; 93005; 94640; 94660; 94668; 96365; 96366; 97116-GP; 97162-GP; 97166-GO; 97530-GO; 99285-25; A9270-GY; C9113; J1650; J1956; J3490; J7512; J7620-GY; Q9967

== ENCOUNTER 2024-03-23 13:30 | Inpatient (IN) | payer BC, MEDICARE ==
[2024-03-23 14:43] LABS: BASOPHILS PERCENT AUTO 0.4 % (0.0-1.0); HEMATOCRIT 36.3 % (37.0-47.0); HEMOGLOBIN 11.7 gm/dl (12.0-16.0); IMMATURE GRAN ABSOLUTE AUTO 0.03 K/mm3 (0.00-0.05); IMMATURE GRAN PERCENT AUTO 0.6 % (0.0-0.4); LYMPHOCYTES ABSOLUTE AUTO 0.8 K/mm3 (1.0-4.8); LYMPHOCYTES PERCENT AUTO 16.6 % (24.0-44.0); MEAN CORPUSCULAR HEMOGLOBIN 30.5 pg (28.0-32.0); MEAN CORPUSCULAR HGB CONC 32.2 g/dl (32.0-36.0); MEAN CORPUSCULAR VOLUME 94.8 fl (83.0-99.0); MEAN PLATELET VOLUME 9.1 fl (9.4-12.3); MONOCYTES ABSOLUTE AUTO 0.8 K/mm3 (0.0-0.8); MONOCYTES PERCENT AUTO 15.4 % (0.0-8.0); NEUTROPHILS ABSOLUTE AUTO 3.3 K/mm3 (1.8-7.7); PLATELET COUNT,PLT 149 K/mm3 (150-400); RED BLOOD CELL COUNT 3.83 M/mm3 (4.10-5.30); WHITE BLOOD CELL COUNT,WBC 4.88 K/mm3 (3.9-11.3)
[2024-03-23] MEDS: Albuterol/Ipratropium 3.0-0.5 MG/3 ML Neb Soln NEB ONE (15:14)
[2024-03-23 15:27] LABS: ALBUMIN 3.3 g/dl (3.4-5.0); ANION GAP 11.2 (5-15); BILIRUBIN TOTAL 0.5 mg/dL (0.2-1.0); BUN/CREATININE RATIO 13.3 (14-18); CALCIUM 8.9 mg/dL (8.5-10.1); CREATININE 1.2 mg/dL (0.55-1.02); EST CRCL DRUG DOSING (CG) 38.13 mL/min; MAGNESIUM 1.8 mg/dL (1.8-2.4); PHOSPHORUS 3.2 mg/dL (2.6-4.7); POTASSIUM,K 4.2 mEq/L (3.5-5.1); PROTEIN TOTAL,TP 6.6 g/dl (6.4-8.2)
[2024-03-23 15:29] LABS: APPEARANCE,URINE CLEAR (Clear); BILIRUBIN,URINE NEGATIVE (Negative); COLOR,URINE LIGHT YELLOW (Yellow); GLUCOSE,URINE NEGATIVE (Negative); KETONES,URINE NEGATIVE (Negative); LEUKOCYTE ESTERASE,URINE NEGATIVE (Negative); NITRITE,URINE NEGATIVE (Negative); OCCULT BLOOD,URINE NEGATIVE (Negative); PROTEIN,URINE NEGATIVE (Negative); UROBILINOGEN,URINE 0.2 (0.2-1.0)
[2024-03-23 15:37] LABS: CORONAVIRUS COVID-19 NAA NEGATIVE (NEGATIVE); INFLUENZA A NAA NEGATIVE (NEGATIVE); RESPIRATORY SYNCYTIAL VIR NAA NEGATIVE (NEGATIVE)
[2024-03-23 15:51] LABS: INR 0.93
[2024-03-23 15:55] LABS: LACTIC ACID 0.5 mmol/L (0.4-2.0)
[2024-03-23 15:56] LABS: D-DIMER QUANTITATIVE 0.91 mg/L (0.19-0.50)
[2024-03-23] MEDS: Aspirin 81 MG Tab.Chew PO ONE (16:07)
[2024-03-23] MEDS: cefTRIAXone 1 GM in Sodium Chloride 0.9% 100 ML IV ONE (16:07)
[2024-03-23] MEDS: methylPREDNISolone Sodium Succinate 125 MG/2 ML SDV IVPUSH ONE (16:07)
[2024-03-23] MEDS ORDERED: Albuterol/Ipratropium 3.0-0.5 MG/3 ML Neb Soln NEB PRN (16:26)
[2024-03-23] MEDS ORDERED: oxyCODONE 5 MG Tab PO PRN (16:26)
[2024-03-23] MEDS ORDERED: Morphine 2 MG/ML SYRINGE IVPUSH PRN (16:26)
[2024-03-23] MEDS ORDERED: Sodium Chloride 0.9% 10 ML Syringe FLUSH PRN (16:26)
[2024-03-23] MEDS ORDERED: Sodium Chloride 0.9% 100 ML IV SCH (16:45)
[2024-03-23] MEDS: Sodium Chloride 0.9% 10 ML Syringe FLUSH PRN (17:08)
[2024-03-23] MEDS: Iopamidol 755 Mg/ML 100 ML Bottle IVPUSH ONE (17:08)
[2024-03-23] MEDS: Sodium Chloride 0.9% 1,000 ML IV SCH (17:17)
[2024-03-23] MEDS: Heparin Sodium 5,000 Units/ML Vial SUBCUT SCH (17:17)
[2024-03-24] MEDS ORDERED: Albuterol 6.7 GM Inhaler INH PRN (03:30)
[2024-03-24] MEDS: Albuterol/Ipratropium 3.0-0.5 MG/3 ML Neb Soln NEB SCH (04:25)
[2024-03-24 04:51] LABS: HEMATOCRIT 36.6 % (37.0-47.0); HEMOGLOBIN 11.7 gm/dl (12.0-16.0); IMMATURE GRAN ABSOLUTE AUTO 0.01 K/mm3 (0.00-0.05); IMMATURE GRAN PERCENT AUTO 0.2 % (0.0-0.4); LYMPHOCYTES ABSOLUTE AUTO 0.4 K/mm3 (1.0-4.8); LYMPHOCYTES PERCENT AUTO 9.5 % (24.0-44.0); MEAN CORPUSCULAR HEMOGLOBIN 29.8 pg (28.0-32.0); MEAN CORPUSCULAR VOLUME 93.1 fl (83.0-99.0); MEAN PLATELET VOLUME 9.2 fl (9.4-12.3); MONOCYTES ABSOLUTE AUTO 0.2 K/mm3 (0.0-0.8); MONOCYTES PERCENT AUTO 4.6 % (0.0-8.0); NEUTROPHILS ABSOLUTE AUTO 3.7 K/mm3 (1.8-7.7); NEUTROPHILS PERCENT AUTO 85.7 % (41.0-71.0); PLATELET COUNT,PLT 162 K/mm3 (150-400); RED BLOOD CELL COUNT 3.93 M/mm3 (4.10-5.30); WHITE BLOOD CELL COUNT,WBC 4.33 K/mm3 (3.9-11.3)
[2024-03-24 05:33] LABS: A/G RATIO 0.9 (1-2); ALBUMIN 3.1 g/dl (3.4-5.0); ANION GAP 12.4 (5-15); BILIRUBIN TOTAL 0.3 mg/dL (0.2-1.0); BUN/CREATININE RATIO 13.6 (14-18); CALCIUM 8.7 mg/dL (8.5-10.1); CREATININE 1.1 mg/dL (0.55-1.02); EST CRCL DRUG DOSING (CG) 41.6 mL/min; POTASSIUM,K 4.4 mEq/L (3.5-5.1); PROTEIN TOTAL,TP 6.6 g/dl (6.4-8.2)
[2024-03-24] MEDS ORDERED: Colchicine 0.6 MG Tab PO PRN (06:21)
[2024-03-24] MEDS ORDERED: Diclofenac Sodium 1% Gel 100 GM Tube TOP PRN (06:21)
[2024-03-24] MEDS: predniSONE 1 MG Tab PO SCH (08:59)
[2024-03-24] MEDS ORDERED: OXYCODONE HCL PO PRN (09:00)
[2024-03-24] MEDS ORDERED: Fluticasone/Umeclidin/Vilanter [Trelegy Ellipta] 100-62.5-25mcg INH SCH (09:00)
[2024-03-24] MEDS: Metoprolol Tartrate 25 MG Tab PO SCH (09:00)
[2024-03-24] MEDS: Rosuvastatin 10 MG Tab PO SCH (09:00)
[2024-03-24] MEDS: Allopurinol 100 MG Tab PO SCH (09:00)
[2024-03-24] MEDS: Furosemide 20 MG Tab PO SCH (09:00)
[2024-03-24] MEDS: Folic Acid 1 MG Tab PO SCH (09:00)
[2024-03-24] MEDS: Gabapentin 300 MG Cap PO SCH ×2 (09:00→20:57)
[2024-03-24] MEDS: Topiramate 25 MG Tab PO SCH (09:01)
[2024-03-24] MEDS: Calcium Carbonate 600 MG Tab PO SCH (09:01)
[2024-03-24] MEDS: cefTRIAXone 1 GM in Sodium Chloride 0.9% 100 ML IV SCH (16:06)
[2024-03-24] MEDS: Sertraline 50 MG Tab PO SCH (20:56)
[2024-03-24] MEDS: Acetaminophen 325 MG Tab PO PRN (20:59)
[2024-03-25 05:57] LABS: BASOPHILS PERCENT AUTO 0.2 % (0.0-1.0); EOSINOPHILS PERCENT AUTO 0.4 % (0.0-6.0); HEMOGLOBIN 11.4 gm/dl (12.0-16.0); IMMATURE GRAN ABSOLUTE AUTO 0.01 K/mm3 (0.00-0.05); IMMATURE GRAN PERCENT AUTO 0.2 % (0.0-0.4); LYMPHOCYTES PERCENT AUTO 20.6 % (24.0-44.0); MEAN CORPUSCULAR HEMOGLOBIN 30.2 pg (28.0-32.0); MEAN CORPUSCULAR HGB CONC 32.6 g/dl (32.0-36.0); MEAN CORPUSCULAR VOLUME 92.8 fl (83.0-99.0); MEAN PLATELET VOLUME 9.4 fl (9.4-12.3); MONOCYTES ABSOLUTE AUTO 0.7 K/mm3 (0.0-0.8); MONOCYTES PERCENT AUTO 15.3 % (0.0-8.0); NEUTROPHILS PERCENT AUTO 63.3 % (41.0-71.0); PLATELET COUNT,PLT 181 K/mm3 (150-400); RED BLOOD CELL COUNT 3.77 M/mm3 (4.10-5.30); WHITE BLOOD CELL COUNT,WBC 4.71 K/mm3 (3.9-11.3)
[2024-03-25 05:59] LABS: A/G RATIO 0.9 (1-2); BILIRUBIN TOTAL 0.3 mg/dL (0.2-1.0); BUN/CREATININE RATIO 15.4 (14-18); CALCIUM 9.1 mg/dL (8.5-10.1); CREATININE 1.3 mg/dL (0.55-1.02); EST CRCL DRUG DOSING (CG) 35.2 mL/min; PROTEIN TOTAL,TP 6.3 g/dl (6.4-8.2)
[2024-03-25 06:07] LABS: ANION GAP 10.6 (5-15); POTASSIUM,K 3.6 mEq/L (3.5-5.1)
[2024-03-25 09:06] VITALS: BP 99/59; PULSE 92
== END 2024-03-25 12:10 | disposition home or self-care (01) | DRG 291 ==
LOC: JD.ED 13:30 → JD.MS 16:26
PROVIDERS: ADMIT Internal Medicine; ATTEND Internal Medicine
PROC: 5A09357 Assistance with Respiratory Ventilation, Less than 24 Consecutive Hours, Continuous Positive Airway Pressure (ICD-10-PCS; principal; 2024-03-23)
DX: I21.4 Non-ST elevation (NSTEMI) myocardial infarction (principal); R79.1 Abnormal coagulation profile; I13.0 Hypertensive heart and chronic kidney disease with heart failure and stage 1 through stage 4 chronic kidney disease, or unspecified chronic kidney disease; I50.9 Heart failure, unspecified; N18.9 Chronic kidney disease, unspecified; I50.33 Acute on chronic diastolic (congestive) heart failure; D84.821 Immunodeficiency due to drugs; I24.89 Other forms of acute ischemic heart disease; J45.909 Unspecified asthma, uncomplicated; J44.9 Chronic obstructive pulmonary disease, unspecified; M05.79 Rheumatoid arthritis with rheumatoid factor of multiple sites without organ or systems involvement; T38.0X5A Adverse effect of glucocorticoids and synthetic analogues, initial encounter; N18.32 Chronic kidney disease, stage 3b; K21.9 Gastro-esophageal reflux disease without esophagitis; G47.30 Sleep apnea, unspecified; E66.9 Obesity, unspecified; F32.A Depression, unspecified; F41.9 Anxiety disorder, unspecified; R09.02 Hypoxemia; M81.0 Age-related osteoporosis without current pathological fracture; R23.0 Cyanosis; E78.00 Pure hypercholesterolemia, unspecified; Z86.010 Personal history of colon polyps; Z79.899 Other long term (current) drug therapy; Z90.710 Acquired absence of both cervix and uterus; Z90.49 Acquired absence of other specified parts of digestive tract; Z87.891 Personal history of nicotine dependence
CPT/HCPCS: 0241U; 36415; 71045; 71275; 80053; 81003; 83605; 83735; 83880; 84100; 84484; 85025; 85379; 85610; 93005; 93307; 94640; 94760; 94761; 96365; 96375; 99285; 99223; 99232; 99239; A9270-GY; J0696; J1644; J2930; J3490; J7030; J7512; J7620-GY; Q9967

== ENCOUNTER 2024-06-12 07:58 | Inpatient (IN) | payer MEDICARE ==
[2024-06-12] MEDS ORDERED: Sodium Chloride 0.9% 10 ML Syringe FLUSH PRN (09:02)
[2024-06-12 09:24] LABS: BASOPHILS PERCENT AUTO 0.4 % (0.0-1.0); EOSINOPHILS ABSOLUTE AUTO 0.2 K/mm3 (0.0-0.4); HEMATOCRIT 42.8 % (37.0-47.0); IMMATURE GRAN ABSOLUTE AUTO 0.03 K/mm3 (0.00-0.05); IMMATURE GRAN PERCENT AUTO 0.4 % (0.0-0.4); LYMPHOCYTES PERCENT AUTO 12.3 % (24.0-44.0); MEAN CORPUSCULAR HEMOGLOBIN 30.4 pg (28.0-32.0); MEAN CORPUSCULAR HGB CONC 31.3 g/dl (32.0-36.0); MEAN PLATELET VOLUME 8.8 fl (9.4-12.3); MONOCYTES ABSOLUTE AUTO 0.8 K/mm3 (0.0-0.8); MONOCYTES PERCENT AUTO 10.7 % (0.0-8.0); NEUTROPHILS ABSOLUTE AUTO 5.7 K/mm3 (1.8-7.7); NEUTROPHILS PERCENT AUTO 73.2 % (41.0-71.0); PLATELET COUNT,PLT 239 K/mm3 (150-400); RED BLOOD CELL COUNT 4.41 M/mm3 (4.10-5.30); WHITE BLOOD CELL COUNT,WBC 7.73 K/mm3 (3.9-11.3)
[2024-06-12 09:25] LABS: HEMOGLOBIN 13.4 gm/dl (12.0-16.0); MEAN CORPUSCULAR VOLUME 97.1 fl (83.0-99.0)
[2024-06-12 09:27] LABS: APPEARANCE,URINE CLEAR (Clear); BILIRUBIN,URINE NEGATIVE (Negative); COLOR,URINE YELLOW (Yellow); GLUCOSE,URINE NEGATIVE (Negative); KETONES,URINE NEGATIVE (Negative); LEUKOCYTE ESTERASE,URINE NEGATIVE (Negative); NITRITE,URINE NEGATIVE (Negative); OCCULT BLOOD,URINE NEGATIVE (Negative); PROTEIN,URINE 1+ (Negative); UROBILINOGEN,URINE 0.2 (0.2-1.0)
[2024-06-12] MEDS: Albuterol/Ipratropium 3.0-0.5 MG/3 ML Neb Soln NEB SCH (09:35)
[2024-06-12 09:56] LABS: AMORPHOUS SEDIMENT,URINE MODERATE /hpf (NOT SEEN); BACTERIA,URINE FEW /hpf (FEW); EPITHELIAL CELLS,URINE 0-5 /hpf (0-5); MUCUS,URINE RARE /hpf (FEW); RBC,URINE 0-5 /hpf (0-5); WBC,URINE 0-5 /hpf (0-5)
[2024-06-12] MEDS: Sodium Chloride 0.9% 500 ML IV ONE (09:57)
[2024-06-12] MEDS: methylPREDNISolone Sodium Succinate 125 MG/2 ML SDV IVPUSH ONE (09:57)
[2024-06-12 09:58] LABS: A/G RATIO 0.7 (1-2); ALBUMIN 3.2 g/dl (3.4-5.0); BILIRUBIN TOTAL 0.5 mg/dL (0.2-1.0); BUN/CREATININE RATIO 12.1 (14-18); CREATININE 1.4 mg/dL (0.55-1.02); EST CRCL DRUG DOSING (CG) 30.05 mL/min; MAGNESIUM 2.3 mg/dL (1.8-2.4); PROTEIN TOTAL,TP 7.6 g/dl (6.4-8.2)
[2024-06-12] MEDS: Iopamidol 755 Mg/ML 100 ML Bottle IVPUSH ONE (10:49)
[2024-06-12] MEDS: Sodium Chloride 0.9% 10 ML Syringe FLUSH PRN (10:49)
[2024-06-12] MEDS: Sodium Chloride 0.9% 100 ML IV SCH (10:49)
[2024-06-12 11:10] LABS: CORONAVIRUS COVID-19 NAA NEGATIVE (NEGATIVE); INFLUENZA A NAA NEGATIVE (NEGATIVE); RESPIRATORY SYNCYTIAL VIR NAA NEGATIVE (NEGATIVE)
[2024-06-12] MEDS: Furosemide 40 MG/4 ML VIAL IVPUSH ONE (14:24)
[2024-06-12] MEDS ORDERED: Albuterol/Ipratropium 3.0-0.5 MG/3 ML Neb Soln NEB PRN (14:42)
[2024-06-12] MEDS: Acetaminophen 325 MG Tab PO SCH (15:00)
[2024-06-12] MEDS: Morphine 2 MG/ML SYRINGE IVPUSH PRN (15:00)
[2024-06-12] MEDS: cefTRIAXone 1 GM in Sodium Chloride 0.9% 100 ML IV SCH (19:03)
[2024-06-12] MEDS: Diclofenac Sodium 1% Gel 100 GM Tube TOP SCH (19:03)
[2024-06-12] MEDS: Azithromycin 500 MG in Sodium Chloride 0.9% 250 ML IV SCH (19:33)
[2024-06-12] MEDS: Formoterol/Mometasone 100-5 MCG 8.8 GM Inhaler INH SCH (20:25)
[2024-06-12] MEDS: Gabapentin 300 MG Cap PO SCH (21:28)
[2024-06-12] MEDS: Sertraline 50 MG Tab PO SCH (21:29)
[2024-06-13 04:56] LABS: BASOPHILS PERCENT AUTO 0.2 % (0.0-1.0); HEMATOCRIT 37.7 % (37.0-47.0); HEMOGLOBIN 11.9 gm/dl (12.0-16.0); IMMATURE GRAN ABSOLUTE AUTO 0.08 K/mm3 (0.00-0.05); IMMATURE GRAN PERCENT AUTO 0.7 % (0.0-0.4); LYMPHOCYTES ABSOLUTE AUTO 0.7 K/mm3 (1.0-4.8); MEAN CORPUSCULAR HEMOGLOBIN 29.9 pg (28.0-32.0); MEAN CORPUSCULAR HGB CONC 31.6 g/dl (32.0-36.0); MEAN CORPUSCULAR VOLUME 94.7 fl (83.0-99.0); MEAN PLATELET VOLUME 9.1 fl (9.4-12.3); MONOCYTES ABSOLUTE AUTO 1.2 K/mm3 (0.0-0.8); MONOCYTES PERCENT AUTO 10.6 % (0.0-8.0); NEUTROPHILS ABSOLUTE AUTO 9.2 K/mm3 (1.8-7.7); NEUTROPHILS PERCENT AUTO 82.5 % (41.0-71.0); PLATELET COUNT,PLT 210 K/mm3 (150-400); RED BLOOD CELL COUNT 3.98 M/mm3 (4.10-5.30); WHITE BLOOD CELL COUNT,WBC 11.18 K/mm3 (3.9-11.3)
[2024-06-13 05:28] LABS: A/G RATIO 0.7 (1-2); ALBUMIN 2.8 g/dl (3.4-5.0); ANION GAP 15.1 (5-15); BILIRUBIN TOTAL 0.2 mg/dL (0.2-1.0); BUN/CREATININE RATIO 15.7 (14-18); CALCIUM 9.2 mg/dL (8.5-10.1); CREATININE 1.4 mg/dL (0.55-1.02); EST CRCL DRUG DOSING (CG) 30.05 mL/min; POTASSIUM,K 4.1 mEq/L (3.5-5.1); PROTEIN TOTAL,TP 6.9 g/dl (6.4-8.2)
[2024-06-13] MEDS: Formoterol/Mometasone 100-5 MCG 8.8 GM Inhaler INH SCH (08:06)
[2024-06-13] MEDS ORDERED: Furosemide 20 MG Tab PO SCH (09:00)
[2024-06-13] MEDS ORDERED: Non-Formulary Medication 1 Each (Fluticasone/Umeclidin/Vilanter [Trelegy Ellipta 100-62.5- INH SCH (09:00)
[2024-06-13] MEDS: Allopurinol 100 MG Tab PO SCH (09:37)
[2024-06-13] MEDS: Gabapentin 300 MG Cap PO SCH (09:38)
[2024-06-13] MEDS: Enoxaparin 40 MG/0.4 ML Syringe SUBCUT SCH (09:38)
[2024-06-13] MEDS: Furosemide 40 MG/4 ML VIAL IVPUSH ONE (09:38)
[2024-06-13] MEDS: Rosuvastatin 10 MG Tab PO SCH (09:38)
[2024-06-13] MEDS: Albuterol/Ipratropium 3.0-0.5 MG/3 ML Neb Soln NEB SCH (10:07)
[2024-06-13] MEDS: Gabapentin 600 MG Tab PO SCH (21:59)
[2024-06-14 05:00] LABS: BASOPHILS PERCENT AUTO 0.1 % (0.0-1.0); EOSINOPHILS ABSOLUTE AUTO 0.2 K/mm3 (0.0-0.4); EOSINOPHILS PERCENT AUTO 1.9 % (0.0-6.0); HEMATOCRIT 38.6 % (37.0-47.0); HEMOGLOBIN 12.4 gm/dl (12.0-16.0); IMMATURE GRAN ABSOLUTE AUTO 0.04 K/mm3 (0.00-0.05); IMMATURE GRAN PERCENT AUTO 0.5 % (0.0-0.4); LYMPHOCYTES ABSOLUTE AUTO 0.8 K/mm3 (1.0-4.8); LYMPHOCYTES PERCENT AUTO 9.7 % (24.0-44.0); MEAN CORPUSCULAR HEMOGLOBIN 30.5 pg (28.0-32.0); MEAN CORPUSCULAR HGB CONC 32.1 g/dl (32.0-36.0); MEAN CORPUSCULAR VOLUME 94.8 fl (83.0-99.0); MEAN PLATELET VOLUME 9.2 fl (9.4-12.3); MONOCYTES ABSOLUTE AUTO 0.9 K/mm3 (0.0-0.8); MONOCYTES PERCENT AUTO 10.6 % (0.0-8.0); NEUTROPHILS ABSOLUTE AUTO 6.6 K/mm3 (1.8-7.7); NEUTROPHILS PERCENT AUTO 77.2 % (41.0-71.0); PLATELET COUNT,PLT 236 K/mm3 (150-400); RED BLOOD CELL COUNT 4.07 M/mm3 (4.10-5.30); WHITE BLOOD CELL COUNT,WBC 8.58 K/mm3 (3.9-11.3)
[2024-06-14 05:23] LABS: A/G RATIO 0.7 (1-2); ALBUMIN 2.8 g/dl (3.4-5.0); ANION GAP 13.4 (5-15); BILIRUBIN TOTAL 0.3 mg/dL (0.2-1.0); BUN/CREATININE RATIO 18.3 (14-18); C-REACTIVE PROTEIN 5.98 mg/dL (<0.30); CREATININE 1.2 mg/dL (0.55-1.02); EST CRCL DRUG DOSING (CG) 35.05 mL/min; PROTEIN TOTAL,TP 6.8 g/dl (6.4-8.2)
[2024-06-14 05:40] LABS: POTASSIUM,K 3.4 mEq/L (3.5-5.1)
[2024-06-14] MEDS: Furosemide 40 MG Tab PO SCH (10:00)
[2024-06-14] MEDS: traMADol 50 MG Tab PO PRN (10:18)
[2024-06-14 10:25] VITALS: PULSE 103
[2024-06-14 12:42] VITALS: BP 116/62
== END 2024-06-14 13:30 | disposition home or self-care (01) | DRG 280 ==
LOC: JD.ED 07:58 → JD.MS 13:11
PROVIDERS: ADMIT Family Medicine; ATTEND Family Medicine
DX: I11.0 Hypertensive heart disease with heart failure (principal); I13.0 Hypertensive heart and chronic kidney disease with heart failure and stage 1 through stage 4 chronic kidney disease, or unspecified chronic kidney disease; R09.02 Hypoxemia; R79.89 Other specified abnormal findings of blood chemistry; J18.9 Pneumonia, unspecified organism; I21.A1 Myocardial infarction type 2; J44.9 Chronic obstructive pulmonary disease, unspecified; E11.9 Type 2 diabetes mellitus without complications; J96.01 Acute respiratory failure with hypoxia; J44.0 Chronic obstructive pulmonary disease with (acute) lower respiratory infection; N18.9 Chronic kidney disease, unspecified; I50.9 Heart failure, unspecified; M81.0 Age-related osteoporosis without current pathological fracture; Z79.52 Long term (current) use of systemic steroids; Z79.891 Long term (current) use of opiate analgesic; K21.9 Gastro-esophageal reflux disease without esophagitis; M06.9 Rheumatoid arthritis, unspecified; E78.00 Pure hypercholesterolemia, unspecified; G47.30 Sleep apnea, unspecified; H91.90 Unspecified hearing loss, unspecified ear; E66.9 Obesity, unspecified; H54.7 Unspecified visual loss; Z90.49 Acquired absence of other specified parts of digestive tract; Z86.16 Personal history of COVID-19; Z68.30 Body mass index [BMI] 30.0-30.9, adult; Z90.710 Acquired absence of both cervix and uterus; Z96.659 Presence of unspecified artificial knee joint; Z87.891 Personal history of nicotine dependence; Z86.010 Personal history of colon polyps; Z79.899 Other long term (current) drug therapy; W01.0XXA Fall on same level from slipping, tripping and stumbling without subsequent striking against object, initial encounter
CPT/HCPCS: 0241U; 36415; 71275; 74177; 80053; 81001; 83690; 83735; 83880; 84145; 84484; 85025; 86140; 93005; 93306; 94640; 94667; 94668; 94760; 94761; 94762; 96361; 96374; 99285; 93010; 99223; 99232; 99238; A9270-GY; J0456; J0696; J1650; J1940; J2270; J2919; J3490; J7030; J7050; J7620-GY; Q9967

== ENCOUNTER 2024-10-23 16:31 | Inpatient (IN) | payer MEDICARE ==
[2024-10-23] MEDS: Sodium Chloride 0.9% 500 ML IV SCH (17:10)
[2024-10-23] MEDS: methylPREDNISolone Sodium Succinate 125 MG/2 ML SDV IVPUSH ONE (17:10)
[2024-10-23 17:17] LABS: BASOPHILS PERCENT AUTO 0.3 % (0.0-1.0); EOSINOPHILS ABSOLUTE AUTO 0.1 K/mm3 (0.0-0.4); EOSINOPHILS PERCENT AUTO 1.8 % (0.0-6.0); HEMATOCRIT 40.1 % (37.0-47.0); HEMOGLOBIN 11.7 gm/dl (12.0-16.0); IMMATURE GRAN ABSOLUTE AUTO 0.02 K/mm3 (0.00-0.05); IMMATURE GRAN PERCENT AUTO 0.3 % (0.0-0.4); LYMPHOCYTES ABSOLUTE AUTO 0.3 K/mm3 (1.0-4.8); LYMPHOCYTES PERCENT AUTO 4.5 % (24.0-44.0); MEAN CORPUSCULAR HGB CONC 29.2 g/dl (32.0-36.0); MEAN CORPUSCULAR VOLUME 99.5 fl (83.0-99.0); MEAN PLATELET VOLUME 9.2 fl (9.4-12.3); MONOCYTES ABSOLUTE AUTO 0.6 K/mm3 (0.0-0.8); MONOCYTES PERCENT AUTO 8.4 % (0.0-8.0); NEUTROPHILS ABSOLUTE AUTO 5.7 K/mm3 (1.8-7.7); NEUTROPHILS PERCENT AUTO 84.7 % (41.0-71.0); PLATELET COUNT,PLT 228 K/mm3 (150-400); RED BLOOD CELL COUNT 4.03 M/mm3 (4.10-5.30); WHITE BLOOD CELL COUNT,WBC 6.67 K/mm3 (3.9-11.3)
[2024-10-23] MEDS: Sodium Chloride 0.9% 10 ML Syringe FLUSH PRN (17:21)
[2024-10-23] MEDS: Albuterol/Ipratropium 3.0-0.5 MG/3 ML Neb Soln NEB ONE (17:31)
[2024-10-23 17:39] LABS: BASE EXCESS ARTERIAL -5.2 (-2-2.0); BICARBONATE,ARTERIAL 20.7 meq/L (22.0-26.0); O2 SATURATION ARTERIAL 89.6 % (96.0-97.0); PCO2 ARTERIAL 44.1 mmHg (35.0-45.0)
[2024-10-23 17:47] LABS: A/G RATIO 0.8 (1-2); ANION GAP 12.2 (5-15); BILIRUBIN TOTAL 0.3 mg/dL (0.2-1.0); BUN/CREATININE RATIO 10.7 (14-18); CALCIUM 8.5 mg/dL (8.5-10.1); CREATININE 1.5 mg/dL (0.55-1.02); EST CRCL DRUG DOSING (CG) 28.04 mL/min; POTASSIUM,K 4.2 mEq/L (3.5-5.1); PROTEIN TOTAL,TP 6.9 g/dl (6.4-8.2)
[2024-10-23 17:51] LABS: LACTIC ACID 1.5 mmol/L (0.4-2.0)
[2024-10-23] MEDS: Doxycycline 100 MG in Sodium Chloride 0.9% 100 ML IV ONE (19:50)
[2024-10-23] MEDS: Albuterol/Ipratropium 3.0-0.5 MG/3 ML Neb Soln NEB SCH (19:51)
[2024-10-24] MEDS: predniSONE 20 MG Tab PO SCH (07:35)
[2024-10-24 08:08] LABS: A/G RATIO 0.7 (1-2); ALBUMIN 2.9 g/dl (3.4-5.0); ANION GAP 11.8 (5-15); BILIRUBIN TOTAL 0.4 mg/dL (0.2-1.0); BUN/CREATININE RATIO 13.1 (14-18); CALCIUM 8.7 mg/dL (8.5-10.1); CREATININE 1.3 mg/dL (0.55-1.02); EST CRCL DRUG DOSING (CG) 32.36 mL/min; POTASSIUM,K 4.8 mEq/L (3.5-5.1); PROTEIN TOTAL,TP 7.2 g/dl (6.4-8.2)
[2024-10-24] MEDS: Doxycycline Monohydrate 100 MG Cap PO SCH (08:20)
[2024-10-24] MEDS: Furosemide 20 MG Tab PO SCH (08:20)
[2024-10-24] MEDS: Allopurinol 100 MG Tab PO SCH (08:20)
[2024-10-24] MEDS: Rosuvastatin 10 MG Tab PO SCH (08:20)
[2024-10-24] MEDS: Gabapentin 300 MG Cap PO SCH (08:20)
[2024-10-24] MEDS ORDERED: OXYCODONE HCL PO SCH (09:00)
[2024-10-24] MEDS: Albuterol/Ipratropium 3.0-0.5 MG/3 ML Neb Soln NEB SCH (09:45)
[2024-10-24] MEDS: Enoxaparin 40 MG/0.4 ML Syringe SUBCUT SCH (12:01)
[2024-10-24] MEDS: Fluticasone/Umeclidin/Vilanter [Trelegy Ellipta 100-62.5- INH SCH (13:33)
[2024-10-24] MEDS: Sertraline 50 MG Tab PO SCH (20:56)
[2024-10-24] MEDS: Gabapentin 600 MG Tab PO SCH (20:56)
[2024-10-24] MEDS: LEFLUNOMIDE 20 MG PO SCH (20:56)
[2024-10-25 06:13] LABS: HEMATOCRIT 36.8 % (37.0-47.0); HEMOGLOBIN 11.1 gm/dl (12.0-16.0); MEAN CORPUSCULAR HGB CONC 30.2 g/dl (32.0-36.0); MEAN CORPUSCULAR VOLUME 96.1 fl (83.0-99.0); MEAN PLATELET VOLUME 9.4 fl (9.4-12.3); PLATELET COUNT,PLT 243 K/mm3 (150-400); RED BLOOD CELL COUNT 3.83 M/mm3 (4.10-5.30); WHITE BLOOD CELL COUNT,WBC 6.14 K/mm3 (3.9-11.3)
[2024-10-25 06:41] LABS: A/G RATIO 0.7 (1-2); ALBUMIN 2.6 g/dl (3.4-5.0); ANION GAP 12.6 (5-15); BILIRUBIN TOTAL 0.3 mg/dL (0.2-1.0); BUN/CREATININE RATIO 19.2 (14-18); CREATININE 1.2 mg/dL (0.55-1.02); EST CRCL DRUG DOSING (CG) 35.05 mL/min; POTASSIUM,K 3.6 mEq/L (3.5-5.1); PROTEIN TOTAL,TP 6.3 g/dl (6.4-8.2)
[2024-10-25 10:01] VITALS: BP 130/69; PULSE 105
== END 2024-10-25 10:11 | disposition home or self-care (01) | DRG 189 ==
LOC: JD.ED 16:31 → JD.MS 19:27 → UNDOADMIN 19:27
PROVIDERS: ADMIT Internal Medicine; ATTEND Internal Medicine
PROC: 4A033R1 Measurement of Arterial Saturation, Peripheral, Percutaneous Approach (ICD-10-PCS; principal; 2024-10-23)
DX: J96.01 Acute respiratory failure with hypoxia (principal); J44.9 Chronic obstructive pulmonary disease, unspecified; I12.9 Hypertensive chronic kidney disease with stage 1 through stage 4 chronic kidney disease, or unspecified chronic kidney disease; I10 Essential (primary) hypertension; N18.9 Chronic kidney disease, unspecified; J96.21 Acute and chronic respiratory failure with hypoxia; J44.1 Chronic obstructive pulmonary disease with (acute) exacerbation; N17.9 Acute kidney failure, unspecified; I50.32 Chronic diastolic (congestive) heart failure; I24.89 Other forms of acute ischemic heart disease; I13.0 Hypertensive heart and chronic kidney disease with heart failure and stage 1 through stage 4 chronic kidney disease, or unspecified chronic kidney disease; J96.22 Acute and chronic respiratory failure with hypercapnia; Z68.31 Body mass index [BMI] 31.0-31.9, adult; G47.33 Obstructive sleep apnea (adult) (pediatric); G89.29 Other chronic pain; M06.9 Rheumatoid arthritis, unspecified; N18.32 Chronic kidney disease, stage 3b; H91.90 Unspecified hearing loss, unspecified ear; H54.7 Unspecified visual loss; E78.00 Pure hypercholesterolemia, unspecified; E66.9 Obesity, unspecified; Z96.659 Presence of unspecified artificial knee joint; Z87.891 Personal history of nicotine dependence; Z79.899 Other long term (current) drug therapy; Z79.51 Long term (current) use of inhaled steroids; Z79.2 Long term (current) use of antibiotics; Z86.16 Personal history of COVID-19; Z90.49 Acquired absence of other specified parts of digestive tract; Z90.710 Acquired absence of both cervix and uterus
CPT/HCPCS: 36415; 36600; 71045; 80053; 82803; 83605; 84484; 85025; 87040 ×2; 93005; 94640; 96361; 96374; 99285; J2919; J7040; 85027; 87428-QW; 93010; 94761; A9270-GY; J1650; J3490; J7512; J7620-GY

== ENCOUNTER 2025-01-26 20:48 | Inpatient (IN) | payer MEDICARE ==
[2025-01-26 23:01] LABS: HEMATOCRIT 40.9 % (37.0-47.0); HEMOGLOBIN 12.9 gm/dl (12.0-16.0); MEAN CORPUSCULAR HEMOGLOBIN 29.3 pg (28.0-32.0); MEAN CORPUSCULAR HGB CONC 31.5 g/dl (32.0-36.0); MEAN CORPUSCULAR VOLUME 92.7 fl (83.0-99.0); MEAN PLATELET VOLUME 10.5 fl (9.4-12.3); PLATELET COUNT,PLT 204 K/mm3 (150-400); RED BLOOD CELL COUNT 4.41 M/mm3 (4.10-5.30); WHITE BLOOD CELL COUNT,WBC 6.09 K/mm3 (3.9-11.3)
[2025-01-26 23:10] LABS: INR 0.96; PROTHROMBIN TIME 10.2 SECONDS (9.7-12.0)
[2025-01-26 23:16] LABS: A/G RATIO 0.7 (1-2); ALBUMIN 3.2 g/dl (3.4-5.0); ANION GAP 9.2 (5-15); BILIRUBIN TOTAL 0.4 mg/dL (0.2-1.0); C-REACTIVE PROTEIN 3.43 mg/dL (<0.30); CALCIUM 9.8 mg/dL (8.5-10.1); CREATININE 1.8 mg/dL (0.55-1.02); EST CRCL DRUG DOSING (CG) 23.03 mL/min; POTASSIUM,K 4.2 mEq/L (3.5-5.1); PROTEIN TOTAL,TP 7.6 g/dl (6.4-8.2)
[2025-01-26] MEDS ORDERED: Sodium Chloride 0.9% 10 ML Syringe FLUSH PRN (23:20)
[2025-01-26] MEDS: methylPREDNISolone Sodium Succinate 125 MG/2 ML SDV IVPUSH ONE (23:27)
[2025-01-26 23:28] LABS: BAND PERCENT MAN 0 % (0-10); BASOPHILS PERCENT MAN 0 (0.1-1.2); EOSINOPHILS PERCENT MAN 3 % (0.7-5.8); LYMPHOCYTES % ATYPICAL MANUAL 0 %; LYMPHOCYTES PERCENT MAN 22 % (20-40); MONOCYTES PERCENT MAN 12 % (2-10)
[2025-01-26 23:29] LABS: HYPOCHROMASIA 1+ SLIGHT; PLATELET COUNT ESTIMATE ADEQUATE
[2025-01-26] MEDS: Sodium Chloride 0.9% 45 ML IV SCH (23:43)
[2025-01-26] MEDS: Iopamidol 755 Mg/ML 100 ML Bottle IVPUSH ONE (23:43)
[2025-01-26] MEDS: Sodium Chloride 0.9% 10 ML Syringe FLUSH PRN (23:44)
[2025-01-26] MEDS: Albuterol/Ipratropium 3.0-0.5 MG/3 ML Neb Soln NEB ONE (23:55)
[2025-01-27 00:07] LABS: BICARBONATE,ARTERIAL 33.2 meq/L (22.0-26.0); O2 SATURATION ARTERIAL 97.3 % (96.0-97.0)
[2025-01-27 00:08] LABS: BASE EXCESS ARTERIAL 7.6 (-2-2.0)
[2025-01-27] MEDS: Ipratropium 0.02% 0.5 MG/2.5 ML Neb Soln ONE (00:34)
[2025-01-27] MEDS: Sodium Chloride 0.9% 500 ML IV ONE (00:39)
[2025-01-27] MEDS: Albuterol/Ipratropium 3.0-0.5 MG/3 ML Neb Soln NEB ONE (01:58)
[2025-01-27] MEDS ORDERED: Melatonin 3 MG Tab PO PRN (17:20)
[2025-01-27] MEDS ORDERED: LORazepam 2 MG/ML SDV IV PRN (17:20)
[2025-01-27] MEDS ORDERED: Sennosides/Docusate Sodium 50-8.6 MG Tab PO PRN (17:20)
[2025-01-27] MEDS ORDERED: Morphine 2 MG/ML SYRINGE IVPUSH PRN (17:20)
[2025-01-27] MEDS ORDERED: Ondansetron 4 MG/2 ML SDV IV PRN (17:20)
[2025-01-27] MEDS ORDERED: Naloxone 0.4 MG/ML SDV IVPUSH PRN (17:20)
[2025-01-27] MEDS ORDERED: Acetaminophen 325 MG Tab PO PRN (17:20)
[2025-01-27] MEDS: Albuterol/Ipratropium 3.0-0.5 MG/3 ML Neb Soln NEB PRN (18:03)
[2025-01-27] MEDS: predniSONE 10 MG Tab PO ONE (18:35)
[2025-01-27] MEDS: Heparin Sodium 5,000 Units/ML Vial SUBCUT SCH (18:37)
[2025-01-27] MEDS: cefTRIAXone 1 GM Vial IVPUSH SCH (18:50)
[2025-01-27] MEDS: Azithromycin 500 MG in Sodium Chloride 0.9% 250 ML IV SCH (18:50)
[2025-01-27] MEDS: oxyCODONE 5 MG Tab PO PRN (20:38)
[2025-01-28 05:42] LABS: BASOPHILS PERCENT AUTO 0.1 % (0.0-1.0); HEMATOCRIT 37.9 % (37.0-47.0); IMMATURE GRAN ABSOLUTE AUTO 0.02 K/mm3 (0.00-0.05); IMMATURE GRAN PERCENT AUTO 0.3 % (0.0-0.4); LYMPHOCYTES ABSOLUTE AUTO 0.7 K/mm3 (1.0-4.8); LYMPHOCYTES PERCENT AUTO 9.3 % (24.0-44.0); MEAN CORPUSCULAR HEMOGLOBIN 28.8 pg (28.0-32.0); MEAN CORPUSCULAR HGB CONC 31.7 g/dl (32.0-36.0); MEAN CORPUSCULAR VOLUME 91.1 fl (83.0-99.0); MEAN PLATELET VOLUME 9.5 fl (9.4-12.3); MONOCYTES ABSOLUTE AUTO 0.5 K/mm3 (0.0-0.8); MONOCYTES PERCENT AUTO 6.4 % (0.0-8.0); NEUTROPHILS ABSOLUTE AUTO 6.3 K/mm3 (1.8-7.7); NEUTROPHILS PERCENT AUTO 83.9 % (41.0-71.0); PLATELET COUNT,PLT 216 K/mm3 (150-400); RED BLOOD CELL COUNT 4.16 M/mm3 (4.10-5.30); WHITE BLOOD CELL COUNT,WBC 7.52 K/mm3 (3.9-11.3)
[2025-01-28 06:02] LABS: A/G RATIO 0.7 (1-2); ALBUMIN 2.7 g/dl (3.4-5.0); ANION GAP 9.7 (5-15); BILIRUBIN TOTAL 0.3 mg/dL (0.2-1.0); BUN/CREATININE RATIO 17.5 (14-18); C-REACTIVE PROTEIN 1.81 mg/dL (<0.30); CALCIUM 9.8 mg/dL (8.5-10.1); CREATININE 1.2 mg/dL (0.55-1.02); EST CRCL DRUG DOSING (CG) 34.54 mL/min; MAGNESIUM 2.1 mg/dL (1.8-2.4); PHOSPHORUS 3.6 mg/dL (2.6-4.7); POTASSIUM,K 4.7 mEq/L (3.5-5.1); PROTEIN TOTAL,TP 6.5 g/dl (6.4-8.2)
[2025-01-28] MEDS: predniSONE 20 MG Tab PO SCH (06:34)
[2025-01-28] MEDS: Gabapentin 300 MG Cap PO SCH ×2 (13:09→20:23)
[2025-01-28] MEDS: Rosuvastatin 10 MG Tab PO SCH (20:21)
[2025-01-28] MEDS: Sertraline 50 MG Tab PO SCH (20:22)
[2025-01-28] MEDS: LORazepam 2 MG/ML SDV IVPUSH PRN (22:14)
[2025-01-29 05:54] LABS: ANION GAP 7.6 (5-15); BUN/CREATININE RATIO 15.8 (14-18); C-REACTIVE PROTEIN 0.94 mg/dL (<0.30); CALCIUM 9.9 mg/dL (8.5-10.1); CREATININE 1.2 mg/dL (0.55-1.02); EST CRCL DRUG DOSING (CG) 34.54 mL/min; POTASSIUM,K 4.6 mEq/L (3.5-5.1)
[2025-01-29] MEDS: Famotidine 20 MG Tab PO SCH (08:17)
[2025-01-29] MEDS: Aspirin 81 MG Tab.EC PO SCH (08:18)
[2025-01-29] MEDS: Gabapentin 300 MG Cap PO SCH (08:18)
[2025-01-29 08:45] VITALS: BP 122/79; PULSE 86
[2025-01-29] MEDS: Non-Formulary Medication 1 Each (Fluticasone/Umeclidin/Vilanter [Trelegy Ellipta 100-62.5- INH SCH (15:47)
== END 2025-01-29 10:30 | disposition home or self-care (01) | DRG 189 ==
LOC: JD.ED 20:48 → JD.MS 01-27 13:21
PROVIDERS: ADMIT Student in an Organized Health Care Education/Training Program; ATTEND Student in an Organized Health Care Education/Training Program
DX: J96.01 Acute respiratory failure with hypoxia (principal); I12.9 Hypertensive chronic kidney disease with stage 1 through stage 4 chronic kidney disease, or unspecified chronic kidney disease; N18.9 Chronic kidney disease, unspecified; E78.00 Pure hypercholesterolemia, unspecified; J21.9 Acute bronchiolitis, unspecified; J44.1 Chronic obstructive pulmonary disease with (acute) exacerbation; N17.9 Acute kidney failure, unspecified; J96.02 Acute respiratory failure with hypercapnia; I10 Essential (primary) hypertension; I27.20 Pulmonary hypertension, unspecified; H91.90 Unspecified hearing loss, unspecified ear; H54.7 Unspecified visual loss; J30.9 Allergic rhinitis, unspecified; G47.30 Sleep apnea, unspecified; M06.9 Rheumatoid arthritis, unspecified; M81.0 Age-related osteoporosis without current pathological fracture; Z96.659 Presence of unspecified artificial knee joint; E66.9 Obesity, unspecified; F41.9 Anxiety disorder, unspecified; F32.A Depression, unspecified; Z86.16 Personal history of COVID-19; Z87.891 Personal history of nicotine dependence; Z79.899 Other long term (current) drug therapy; Z79.1 Long term (current) use of non-steroidal anti-inflammatories (NSAID); Z87.81 Personal history of (healed) traumatic fracture; Z79.51 Long term (current) use of inhaled steroids; Z90.49 Acquired absence of other specified parts of digestive tract; Z90.710 Acquired absence of both cervix and uterus; Z98.890 Other specified postprocedural states
CPT/HCPCS: 36415 ×2; 36600; 71275; 80053; 82803; 83605; 83880; 84484 ×3; 85007; 85027; 85379; 85610; 86140; 87040 ×2; 87428; 93005; 94640 ×2; 96361; 96374; 99284; A9270 ×2; J2919; J7030; Q9967; 80048; 83735; 84100; 85025; 93010; 94667; 94668; 94760; 94761; 99285; J0456; J0696; J1644; J2060; J7512

== ENCOUNTER 2025-09-21 08:33 | Inpatient (IN) | payer MEDICARE ==
[2025-09-21] MEDS ORDERED: Sodium Chloride 0.9% 10 ML Syringe FLUSH PRN ×2 (08:45→15:35)
[2025-09-21 09:11] LABS: BASOPHILS ABSOLUTE AUTO 0.0 K/mm3 (0.0-0.2); BASOPHILS PERCENT AUTO 0.2 % (0.0-1.0); EOSINOPHILS ABSOLUTE AUTO 0.0 K/mm3 (0.0-0.4); EOSINOPHILS PERCENT AUTO 0.1 % (0.0-6.0); IMMATURE GRAN ABSOLUTE AUTO 0.12 K/mm3 (0.00-0.05); IMMATURE GRAN PERCENT AUTO 0.9 % (0.0-0.4); LYMPHOCYTES ABSOLUTE AUTO 1.4 K/mm3 (1.0-4.8); LYMPHOCYTES PERCENT AUTO 9.6 % (24.0-44.0); MEAN PLATELET VOLUME 9.1 fl (9.4-12.3); MONOCYTES ABSOLUTE AUTO 1.2 K/mm3 (0.0-0.8); MONOCYTES PERCENT AUTO 8.5 % (0.0-8.0); NEUTROPHILS ABSOLUTE AUTO 11.4 K/mm3 (1.8-7.7); NEUTROPHILS PERCENT AUTO 80.7 % (41.0-71.0); NRBC ABSOLUTE 0.00 (0.00-0.02); NRBC PERCENT 0.0 % (0.0-0.2); PLATELET COUNT,PLT 222 K/mm3 (150-400); RED BLOOD CELL COUNT 4.25 M/mm3 (4.10-5.30); WHITE BLOOD CELL COUNT,WBC 14.10 K/mm3 (3.9-11.3)
[2025-09-21 09:50] LABS: A/G RATIO 0.6 (1-2); ALANINE AMINOTRANSFERASE,ALT 19.0 U/L (14-59); BILIRUBIN TOTAL 0.7 mg/dL (0.2-1.0); BLOOD UREA NITROGEN,BUN 24.0 mg/dL (7-18); CARBON DIOXIDE,CO2 26.0 mEq/L (21-32); CHLORIDE,CL 104.0 mEq/L (98-107); CREATININE 1.6 mg/dL (0.55-1.02); EST CRCL DRUG DOSING (CG) 25.9 mL/min; ESTIMATED GFR 34.0 mL/min (>60); PROTEIN TOTAL,TP 8.0 g/dl (6.4-8.2); SODIUM,NA 138.0 mEq/L (136-145)
[2025-09-21 09:58] LABS: TROPONIN I HIGH SENSITIVITY 574.0 pg/mL (<=51)
[2025-09-21 09:59] LABS: ASPARTATE AMNIOTRANSFERASE,AST 31.0 U/L (15-37); GLUCOSE RANDOM 114.0 mg/dL (70-99); POTASSIUM,K 3.9 mEq/L (3.5-5.1)
[2025-09-21] MEDS: Sodium Chloride 0.9% 10 ML Syringe FLUSH PRN (10:13)
[2025-09-21] MEDS: Iopamidol 755 Mg/ML 100 ML Bottle IVPUSH ONE (10:13)
[2025-09-21 11:26] LABS: APPEARANCE,URINE CLEAR (Clear); GLUCOSE,URINE NEGATIVE (Negative); OCCULT BLOOD,URINE TRACE-INTACT (Negative)
[2025-09-21] MEDS: cefTRIAXone 1 GM in Water For Injection, Sterile 10 ML IVPUSH ONE (11:27)
[2025-09-21] MEDS: Furosemide 40 MG/4 ML VIAL IVPUSH ONE (13:03)
[2025-09-21 16:17] LABS: INR 1.06
[2025-09-21] MEDS ORDERED: oxyCODONE ER 10 MG TAB.ER PO PRN (16:29)
[2025-09-21 16:36] LABS: LACTIC ACID 1.3 mmol/L (0.4-2.0)
[2025-09-21] MEDS: oxyCODONE ER 10 MG TAB.ER PO PRN (16:44)
[2025-09-22 06:01] LABS: BASOPHILS ABSOLUTE AUTO 0.0 K/mm3 (0.0-0.2); BASOPHILS PERCENT AUTO 0.1 % (0.0-1.0); EOSINOPHILS ABSOLUTE AUTO 0.2 K/mm3 (0.0-0.4); EOSINOPHILS PERCENT AUTO 2.4 % (0.0-6.0); IMMATURE GRAN ABSOLUTE AUTO 0.04 K/mm3 (0.00-0.05); IMMATURE GRAN PERCENT AUTO 0.5 % (0.0-0.4); LYMPHOCYTES ABSOLUTE AUTO 0.9 K/mm3 (1.0-4.8); LYMPHOCYTES PERCENT AUTO 10.4 % (24.0-44.0); MEAN PLATELET VOLUME 9.5 fl (9.4-12.3); MONOCYTES ABSOLUTE AUTO 0.7 K/mm3 (0.0-0.8); MONOCYTES PERCENT AUTO 8.0 % (0.0-8.0); NEUTROPHILS ABSOLUTE AUTO 6.6 K/mm3 (1.8-7.7); NEUTROPHILS PERCENT AUTO 78.6 % (41.0-71.0); NRBC ABSOLUTE 0.00 (0.00-0.02); NRBC PERCENT 0.0 % (0.0-0.2); PLATELET COUNT,PLT 162 K/mm3 (150-400); RED BLOOD CELL COUNT 3.49 M/mm3 (4.10-5.30); WHITE BLOOD CELL COUNT,WBC 8.37 K/mm3 (3.9-11.3)
[2025-09-22 06:31] LABS: A/G RATIO 0.6 (1-2); ALANINE AMINOTRANSFERASE,ALT 13.0 U/L (14-59); ASPARTATE AMNIOTRANSFERASE,AST 22.0 U/L (15-37); BILIRUBIN TOTAL 0.4 mg/dL (0.2-1.0); BLOOD UREA NITROGEN,BUN 18.0 mg/dL (7-18); CARBON DIOXIDE,CO2 23.0 mEq/L (21-32); CHLORIDE,CL 107.0 mEq/L (98-107); CREATININE 1.1 mg/dL (0.55-1.02); EST CRCL DRUG DOSING (CG) 37.68 mL/min; ESTIMATED GFR 53.0 mL/min (>60); GLUCOSE RANDOM 92.0 mg/dL (70-99); PROTEIN TOTAL,TP 6.7 g/dl (6.4-8.2); SODIUM,NA 139.0 mEq/L (136-145)
[2025-09-22 06:33] LABS: POTASSIUM,K 3.7 mEq/L (3.5-5.1)
[2025-09-22] MEDS: Fluticasone/Umeclidin/Vilanter [Trelegy Ellipta 100-62.5- INH SCH (09:34)
[2025-09-23 05:58] LABS: BASOPHILS ABSOLUTE AUTO 0.0 K/mm3 (0.0-0.2); BASOPHILS PERCENT AUTO 0.1 % (0.0-1.0); EOSINOPHILS ABSOLUTE AUTO 0.1 K/mm3 (0.0-0.4); EOSINOPHILS PERCENT AUTO 1.0 % (0.0-6.0); IMMATURE GRAN ABSOLUTE AUTO 0.02 K/mm3 (0.00-0.05); IMMATURE GRAN PERCENT AUTO 0.3 % (0.0-0.4); LYMPHOCYTES ABSOLUTE AUTO 0.9 K/mm3 (1.0-4.8); LYMPHOCYTES PERCENT AUTO 11.4 % (24.0-44.0); MEAN PLATELET VOLUME 9.2 fl (9.4-12.3); MONOCYTES ABSOLUTE AUTO 0.6 K/mm3 (0.0-0.8); MONOCYTES PERCENT AUTO 7.9 % (0.0-8.0); NEUTROPHILS ABSOLUTE AUTO 6.2 K/mm3 (1.8-7.7); NEUTROPHILS PERCENT AUTO 79.3 % (41.0-71.0); NRBC ABSOLUTE 0.00 (0.00-0.02); NRBC PERCENT 0.0 % (0.0-0.2); PLATELET COUNT,PLT 202 K/mm3 (150-400); RED BLOOD CELL COUNT 3.72 M/mm3 (4.10-5.30); WHITE BLOOD CELL COUNT,WBC 7.83 K/mm3 (3.9-11.3)
[2025-09-23 06:24] LABS: A/G RATIO 0.5 (1-2); ALANINE AMINOTRANSFERASE,ALT 13.0 U/L (14-59); BILIRUBIN TOTAL 0.3 mg/dL (0.2-1.0); BLOOD UREA NITROGEN,BUN 11.0 mg/dL (7-18); CARBON DIOXIDE,CO2 22.0 mEq/L (21-32); CHLORIDE,CL 106.0 mEq/L (98-107); CREATININE 0.9 mg/dL (0.55-1.02); EST CRCL DRUG DOSING (CG) 46.05 mL/min; ESTIMATED GFR 68.0 mL/min (>60); GLUCOSE RANDOM 93.0 mg/dL (70-99); PROTEIN TOTAL,TP 7.1 g/dl (6.4-8.2); SODIUM,NA 138.0 mEq/L (136-145)
[2025-09-23 06:34] LABS: ASPARTATE AMNIOTRANSFERASE,AST 22.0 U/L (15-37); POTASSIUM,K 3.9 mEq/L (3.5-5.1)
[2025-09-24 05:55] LABS: BASOPHILS ABSOLUTE AUTO 0.0 K/mm3 (0.0-0.2); BASOPHILS PERCENT AUTO 0.3 % (0.0-1.0); EOSINOPHILS ABSOLUTE AUTO 0.2 K/mm3 (0.0-0.4); EOSINOPHILS PERCENT AUTO 2.7 % (0.0-6.0); IMMATURE GRAN ABSOLUTE AUTO 0.02 K/mm3 (0.00-0.05); IMMATURE GRAN PERCENT AUTO 0.3 % (0.0-0.4); LYMPHOCYTES ABSOLUTE AUTO 1.1 K/mm3 (1.0-4.8); LYMPHOCYTES PERCENT AUTO 15.3 % (24.0-44.0); MEAN PLATELET VOLUME 8.9 fl (9.4-12.3); MONOCYTES ABSOLUTE AUTO 0.8 K/mm3 (0.0-0.8); MONOCYTES PERCENT AUTO 10.9 % (0.0-8.0); NEUTROPHILS ABSOLUTE AUTO 5.0 K/mm3 (1.8-7.7); NEUTROPHILS PERCENT AUTO 70.5 % (41.0-71.0); NRBC ABSOLUTE 0.00 (0.00-0.02); NRBC PERCENT 0.0 % (0.0-0.2); PLATELET COUNT,PLT 206 K/mm3 (150-400); RED BLOOD CELL COUNT 4.00 M/mm3 (4.10-5.30); WHITE BLOOD CELL COUNT,WBC 7.14 K/mm3 (3.9-11.3)
[2025-09-24 06:19] LABS: A/G RATIO 0.5 (1-2); ALANINE AMINOTRANSFERASE,ALT 17.0 U/L (14-59); BILIRUBIN TOTAL 0.4 mg/dL (0.2-1.0); BLOOD UREA NITROGEN,BUN 11.0 mg/dL (7-18); CARBON DIOXIDE,CO2 26.0 mEq/L (21-32); CHLORIDE,CL 108.0 mEq/L (98-107); CREATININE 0.9 mg/dL (0.55-1.02); EST CRCL DRUG DOSING (CG) 46.05 mL/min; ESTIMATED GFR 68.0 mL/min (>60); GLUCOSE RANDOM 104.0 mg/dL (70-99); PROTEIN TOTAL,TP 7.1 g/dl (6.4-8.2); SODIUM,NA 141.0 mEq/L (136-145)
[2025-09-24 06:57] LABS: ASPARTATE AMNIOTRANSFERASE,AST 36.0 U/L (15-37); POTASSIUM,K 3.9 mEq/L (3.5-5.1)
[2025-09-24] MEDS: Nystatin Susp 100,000 Unit/ML 5 ML UD Cup PO SCH (13:45)
[2025-09-24 20:24] LABS: TROPONIN I HIGH SENSITIVITY 127.0 pg/mL (<=51)
[2025-09-24 20:53] LABS: TSH 94.85 uIU/mL (0.358-3.74)
[2025-09-24 21:12] LABS: T4 FREE 0.36 ng/dL (0.76-1.46)
[2025-09-25 04:46] LABS: BASOPHILS ABSOLUTE AUTO 0.0 K/mm3 (0.0-0.2); BASOPHILS PERCENT AUTO 0.5 % (0.0-1.0); EOSINOPHILS ABSOLUTE AUTO 0.2 K/mm3 (0.0-0.4); EOSINOPHILS PERCENT AUTO 3.5 % (0.0-6.0); IMMATURE GRAN ABSOLUTE AUTO 0.04 K/mm3 (0.00-0.05); IMMATURE GRAN PERCENT AUTO 0.7 % (0.0-0.4); LYMPHOCYTES ABSOLUTE AUTO 1.3 K/mm3 (1.0-4.8); LYMPHOCYTES PERCENT AUTO 22.1 % (24.0-44.0); MEAN PLATELET VOLUME 8.6 fl (9.4-12.3); MONOCYTES ABSOLUTE AUTO 0.9 K/mm3 (0.0-0.8); MONOCYTES PERCENT AUTO 14.1 % (0.0-8.0); NEUTROPHILS ABSOLUTE AUTO 3.6 K/mm3 (1.8-7.7); NEUTROPHILS PERCENT AUTO 59.1 % (41.0-71.0); NRBC ABSOLUTE 0.00 (0.00-0.02); NRBC PERCENT 0.0 % (0.0-0.2); PLATELET COUNT,PLT 235 K/mm3 (150-400); RED BLOOD CELL COUNT 3.97 M/mm3 (4.10-5.30); WHITE BLOOD CELL COUNT,WBC 6.03 K/mm3 (3.9-11.3)
[2025-09-25 05:22] LABS: A/G RATIO 0.5 (1-2); ALANINE AMINOTRANSFERASE,ALT 17.0 U/L (14-59); ASPARTATE AMNIOTRANSFERASE,AST 24.0 U/L (15-37); BILIRUBIN TOTAL 0.4 mg/dL (0.2-1.0); BLOOD UREA NITROGEN,BUN 6.0 mg/dL (7-18); CARBON DIOXIDE,CO2 26.0 mEq/L (21-32); CHLORIDE,CL 108.0 mEq/L (98-107); CREATININE 0.9 mg/dL (0.55-1.02); EST CRCL DRUG DOSING (CG) 46.05 mL/min; ESTIMATED GFR 68.0 mL/min (>60); GLUCOSE RANDOM 92.0 mg/dL (70-99); POTASSIUM,K 3.8 mEq/L (3.5-5.1); PROTEIN TOTAL,TP 7.1 g/dl (6.4-8.2); SODIUM,NA 142.0 mEq/L (136-145)
[2025-09-25 12:30] VITALS: BP 116/81; PULSE 86
== END 2025-09-25 13:56 | disposition home or self-care (01) | DRG 871 ==
LOC: JD.ED 08:33 → JD.MS 13:02
PROVIDERS: ADMIT Family Medicine; ATTEND Family Medicine
DX: J44.9 Chronic obstructive pulmonary disease, unspecified (principal); I11.0 Hypertensive heart disease with heart failure; I50.9 Heart failure, unspecified; J18.9 Pneumonia, unspecified organism; R79.89 Other specified abnormal findings of blood chemistry; J96.00 Acute respiratory failure, unspecified whether with hypoxia or hypercapnia; A41.9 Sepsis, unspecified organism; I21.A1 Myocardial infarction type 2; I50.33 Acute on chronic diastolic (congestive) heart failure; J18.8 Other pneumonia, unspecified organism; J96.01 Acute respiratory failure with hypoxia; J44.0 Chronic obstructive pulmonary disease with (acute) lower respiratory infection; N17.9 Acute kidney failure, unspecified; N39.0 Urinary tract infection, site not specified; I13.0 Hypertensive heart and chronic kidney disease with heart failure and stage 1 through stage 4 chronic kidney disease, or unspecified chronic kidney disease; R65.20 Severe sepsis without septic shock; E78.00 Pure hypercholesterolemia, unspecified; G47.30 Sleep apnea, unspecified; K21.9 Gastro-esophageal reflux disease without esophagitis; M06.9 Rheumatoid arthritis, unspecified; N18.9 Chronic kidney disease, unspecified; H91.90 Unspecified hearing loss, unspecified ear; H54.7 Unspecified visual loss; M81.0 Age-related osteoporosis without current pathological fracture; F41.9 Anxiety disorder, unspecified; F32.A Depression, unspecified; E66.9 Obesity, unspecified; Z96.659 Presence of unspecified artificial knee joint; Z68.30 Body mass index [BMI] 30.0-30.9, adult; Z86.16 Personal history of COVID-19; Z79.899 Other long term (current) drug therapy; Z79.82 Long term (current) use of aspirin; Z90.49 Acquired absence of other specified parts of digestive tract; Z90.710 Acquired absence of both cervix and uterus; Z87.891 Personal history of nicotine dependence
CPT/HCPCS: 36415; 71045; 71275; 80053; 81001; 83735; 83880; 84484 ×2; 85025; 85379; 87040; 87086; 87428; 93005; 94640; 96365; 96375; 99285; A9270; J0456; J0696; J7050; Q9967; 83605; 84439; 84443; 85610; 86140; 87070; 87154; 87205; 87641; 93010; 93306; 94667; 94668; 94761; 97112-GP; 97116-GP; 97162-GP; 97165-GO; J1650; J7030; J7040; J7512